=== PATIENT | female | born 1945 | race Caucasian/White ===

== ENCOUNTER 2018-03-16 09:52 | Outpatient (REF) | payer MEDICARE, OTHER, SELFPAY ==
[2018-03-16 20:04] LABS: Anion Gap 6.4 mmol/L (3-11); BUN 17 mg/dL (7-18); CO2 29.6 mmol/L (21.0-32.0); CREATININE 0.93 mg/dL (0.55-1.02); Calcium 8.9 mg/dL (8.5-10.1); Chloride 105 mmol/L (98-107); Cholesterol 188 mg/dL (50-200); Estimated GFR 59.43 (mL/min/1.73m2); Glucose 129 mg/dL (70-100); HDL Cholesterol 65 mg/dL (40-60); Potassium 4.3 mmol/L (3.5-5.1); Sodium 141 mmol/L (136-145); TSH 1.25 uIU/mL (0.358-3.74); Triglyceride 144 mg/dL (30-150)
[2018-03-16 21:02] LABS: LDL CHOLESTEROL 101 mg/dL (<100)
== END 2018-03-16 10:12 ==
LOC: NCHCN 09:52
PROVIDERS: PCP Physician Assistant Medical; Visit Provider Physician Assistant Medical
DX: E11.9 Type 2 diabetes mellitus without complications (principal)
CPT/HCPCS: 80048; 80061; 83721; 84443

== ENCOUNTER 2018-11-14 14:23 | Outpatient (REF) | payer MEDICARE, OTHER, SELFPAY ==
[2018-11-14 21:12] LABS: Anion Gap 9.4 mmol/L (3-11); BUN 18 mg/dL (7-18); CO2 26.6 mmol/L (21.0-32.0); CREATININE 1.06 mg/dL (0.55-1.02); Calcium 8.8 mg/dL (8.5-10.1); Chloride 105 mmol/L (98-107); Estimated GFR 50.96 (mL/min/1.73m2); Ferritin 42 ng/mL (8-388); Glucose 98 mg/dL (70-100); Magnesium 1.9 mg/dL (1.8-2.4); Potassium 4.1 mmol/L (3.5-5.1); Sodium 141 mmol/L (136-145)
[2018-11-14 22:28] LABS: Iron 94 ug/dL (50-175); Total Iron Binding Capacity 366 ug/dL (250-450); Transferrin Sat 26 % (15-50)
[2018-11-14 22:35] LABS: COMMENT (LAB VIEW ONLY) 241.36 mg/dL; Microalb ug/mg Crea 6.6 ug/mg Cr
== END 2018-11-14 14:43 ==
LOC: NCHCN 14:23
PROVIDERS: PCP Physician Assistant Medical; Visit Provider Nurse Practitioner Family
DX: E11.9 Type 2 diabetes mellitus without complications (principal)
CPT/HCPCS: 80048; 82043; 82570; 82728; 83540; 83550; 83735

== ENCOUNTER 2019-09-21 11:22 | Outpatient (REF) | payer MEDICARE, OTHER, SELFPAY ==
[2019-09-21 19:42] LABS: Abs Immature Grans 0.01 k/cumm (0.0-0.09); Absolute Basophil Count 0.06 k/cumm (0.0-0.2); Absolute Eosinophil Count 0.31 k/cumm (0.0-0.7); Absolute Lymphocyte Count 1.34 k/cumm (1.2-3.4); Absolute Monocyte Count 0.43 k/cumm (0.11-0.7); Absolute Neutrophil Count 4.05 k/cumm (1.2-6.7); HCT 40.3 % (36.0-46.0); HGB 13.5 g/dL (12.0-15.5); Immature Grans % 0.2 %; Lymphocytes % 21.6; Mean Corp. HGB Concentration 33.5 g/dL (32.0-36.0); Mean Corpuscular Hemoglobin 29.5 pg (27.0-33.0); Mean Platelet Volume 10.3 fL (8.0-11.0); Monocytes % 6.9; Neutrophils % 65.3; Platelet Count 261 x1000/uL (130-400); RBC 4.58 m/cumm (4.00-5.20); RBC Distribution Width 13.5 % (11.7-14.6)
[2019-09-21 20:30] LABS: COMMENT (LAB VIEW ONLY) 123.19 mg/dL; Microalb ug/mg Crea 8.1 ug/mg Cr
[2019-09-21 20:33] LABS: ALT 32 U/L (14-59); AST 22 U/L (15-37); Albumin 3.8 g/dL (3.4-5.0); Alkaline Phosphatase 93 U/L (46-116); BUN 22 mg/dL (7-18); Bilirubin, Total 0.7 mg/dL (0.2-1.0); CREATININE 1.14 mg/dL (0.55-1.02); Calcium 8.5 mg/dL (8.5-10.1); Calculated LDL 59 mg/dL (<100); Chloride 107 mmol/L (98-107); Cholesterol 147 mg/dL (<200); Estimated GFR 46.72 (mL/min/1.73m2); Glucose 124 mg/dL (74-106); HDL Cholesterol 72 mg/dL (40-60); Potassium 4.5 mmol/L (3.5-5.1); Sodium 141 mmol/L (136-145); Total Protein 6.8 g/dL (6.4-8.2); Triglyceride 82 mg/dL (<150)
[2019-09-21 20:46] LABS: Hemoglobin A1C 7.1 % (3.8-5.6)
== END 2019-09-21 11:42 ==
LOC: NCHCN 11:22
PROVIDERS: PCP Physician Assistant; Visit Provider Physician Assistant
DX: I10 Essential (primary) hypertension (principal); E11.9 Type 2 diabetes mellitus without complications; R05 Cough; E66.01 Morbid (severe) obesity due to excess calories; M25.511 Pain in right shoulder
CPT/HCPCS: 80053; 80061; 82043; 82570; 83036; 85025

== ENCOUNTER → 2019-12-04 10:50 | Outpatient (BNVA) | payer MEDICARE, OTHER, SELFPAY | PROVIDERS: PCP Physician Assistant; Referring Provider Physician Assistant; Visit Provider Orthopaedic Surgery | DX: R69 Illness, unspecified (principal) ==

== ENCOUNTER 2019-12-25 14:20 | Outpatient (CLI) | payer MEDICARE, OTHER, SELFPAY ==
--- NOTE | 2019-12-25 11:30 | DI.RAD_ITS ---
EXAM: XR KNEE LT 1V CLINICAL HISTORY: pain TECHNIQUE: COMPARISON: CR,DX XR KNEE COMPLETE MIN 4V LT from 10/11/2019 FINDINGS: AP view of the knee was obtained. Mild marginal osteophyte formation noted involving lateral and med ial tibiofemoral joint. Question slight narrowing lateral tibiofemoral cartilaginous joint space. N o other significant abnormality seen. IMPRESSION: RADIATION DOSE DELIVERED: Total DLP
== END 2019-12-25 14:40 ==
PROVIDERS: PCP Physician Assistant; Referring Provider Physician Assistant; Visit Provider Orthopaedic Surgery
DX: M25.762 Osteophyte, left knee (principal); M25.562 Pain in left knee
CPT/HCPCS: 20610; 99201; 99202; 73560; J1040

== ENCOUNTER → 2020-01-22 10:33 | Outpatient (BNVA) | payer MEDICARE, OTHER, SELFPAY | PROVIDERS: PCP Physician Assistant; Referring Provider Physician Assistant; Visit Provider Orthopaedic Surgery | DX: M25.562 Pain in left knee (principal); Z01.818 Encounter for other preprocedural examination; M23.304 Other meniscus derangements, unspecified medial meniscus, left knee; Z98.890 Other specified postprocedural states ==

== ENCOUNTER 2020-01-25 08:18 | Outpatient (CLI) | payer MEDICARE, OTHER, SELFPAY ==
[2020-01-26 14:57] LABS: COVID-19 RT-PCR Result NEGATIVE (Negative)
== END 2020-01-25 08:38 ==
PROVIDERS: PCP Physician Assistant; Visit Provider Orthopaedic Surgery
DX: Z11.59 Encounter for screening for other viral diseases (principal); Z01.818 Encounter for other preprocedural examination
CPT/HCPCS: U0003

== ENCOUNTER 2020-01-28 07:51 | Day surgery (SDC) | payer MEDICARE, OTHER, SELFPAY ==
[2020-01-28] VITALS (7 sets, daily range): BP systolic 103–145; BP diastolic 46–78; PULSE 54–69; RESP 14–17; TEMP 36.2–36.6; O2SAT 98–100
[2020-01-28] MEDS: Lactated Ringers 1,000 ML 80 ML IV (08:38)
[2020-01-28] MEDS: ceFAZolin 2 GM/50 ML BAG IVPB (09:51)
--- NOTE | 2020-01-28 10:40 | PDOC.DSDIS_ITS ---
Discharge Plan Disposition Patient Disposition: HOME Condition: Good Discharge Details Reason For Visit: ARTHROSCOPY L KNEE Attending Provider: Collin Clancy Primary Care Provider: Lisette Gimenez Home Meds and New Rx's Prescriptions: New hydrocodone-acetaminophen 5-325 mg tablet 1 tab PO Q6H PRN (Reason: pain) Qty: 10 RF: 0 ibuprofen 600 mg tablet 600 mg PO TID Qty: 30 RF: 0 Continued omeprazole 20 mg capsule,delayed release(DR/EC) 20 mg PO DAILY RF: 0 sertraline 100 mg tablet 100 mg PO DAILY RF: 0 Januvia 100 mg tablet 100 mg PO DAILY RF: 0 atorvastatin 10 mg tablet 10 mg PO DAILY RF: 0 losartan 50 mg tablet 50 mg PO DAILY RF: 0 magnesium 250 mg tablet 500 mg PO DAILY RF: 0 multivitamin Tablet 1 tab PO DAILY RF: 0 Discharge Instructions Additional Instructions: Elevate L leg on 1-2 pillows as much as possible for next 48 hours. Apply cryocuff to L knee 4 times/day for 1 hour each time. May use more, if desired. Crutches to walk. May put as much weight on L leg as your discomfort allows. Discontinue crutches when you can step fully on L leg with minimal pain. May remove dressings, shower, and get incisions wet after 48 hours. Leave incisions uncovered when they are dry and sealed. Outpatient physical therapy for rehab L knee post-arthroscopic partial lateral meniscectomy on or Tuesday. Follow up with in 2 weeks. Take ibuprofen as prescribed for 10 days to decrease swelling and inflammation. Take hydrocodone for breakthru pain, if needed. Referrals: Collin Clancy MD [ [facility] STAFF PHYSICIAN] - (f/u in 2 weeks.) Equipment/Supplies: Partial Weight Bearing Crutches Activity:: Activity as Tolerated Remove Dressings/Wound Care:: 48 hours Shower/Bathe:: 48 hours Diet:: As Tolerated Discharge Orders Discharge Orders: Discharge Order (Routine); Ordered 01/28/20 Ordered By: Collin Clancy
[2020-01-28] MEDS: fentaNYL 100 MCG/2 ML VIAL IVP (11:05)
[2020-01-28] MEDS: Normal Saline Flush 10 ML SYR IV (11:15)
[2020-01-28] MEDS: HYDROmorphone 2 MG/ML VIAL IVP (11:15)
--- NOTE | 2020-01-30 14:26 | ROE_ITS ---
Date of service: 01/28/20 Time of Service: 09:26 Operative Note Operative Note DATE OF PROCEDURE: 01/28/20 PRE-OP DIAGNOSIS: Torn left lateral meniscus POST-OP DIAGNOSIS: same PROCEDURE: Arthroscopic partial left lateral meniscectomy SURGEON: Collin Clancy ANESTHESIA: GETA COMPLICATIONS: None Patient was transported to: PACU Patient's condition: stable Indications: Is a 74-year-old white female who developed pain and swelling in her left knee at the beginning of December. Her pain was disabling for her. She did not respond to conservative treatment. MRI scan was obtained that showed a torn lateral meniscus. Arthroscopic partial lateral meniscectomy was recommended to alleviate her pain and hopefully restore her previous mobility. The risk on case of procedure explained patient detail preop Procedure Description: Patient taken the operating room on 01/28/2020 and placed supine operative table. General anesthetic was administered. The left thigh was placed in the arthroscopic leg contreras and the left knee was prepped and draped free in usual sterile fashion. Arthroscopic portals were established and the left knee was inflated with normal saline solution using the arthroscopy pump. Routine arthroscopic examination then proceeded. Intraoperative photographs were obtained to document pertinent findings. Findings medial compartment she was noted to have a normal medial meniscus. This meniscus was stable to probing on direct vision. There was minor scuffing of the medial femoral condyle articular cartilage from insertion of the arthroscope. The medial compartment articular cartilage for the most part was undamaged. In concert intact anterior and posterior cruciate ligaments. Lateral compartment showed a tear of the anterior half of the lateral meniscus. The articular cartilage in the lateral compartment was normal. The lateral meniscal tear was resected using the 90 degree high radiofrequency electrocautery wand. It was debrided back to a stable rim. The remaining rim of the lateral meniscus was probed under direct vision with a right angle probe and was fully stable. Popliteus tendon was normal. Medial lateral gutters were clear. Suprapatellar pouch was clear. Patellofemoral joint showed normal patella tracking and no significant to articular cartilage damage to the patella or the trochlea of the femur. At this point the knee was copiously irrigated with saline solution using arthroscopy pump until the outflow was clear. 15 cc of 0.5% Marcaine with epinephrine solution along with 4 mg of morphine were instilled into the left knee and all instruments were removed from the knee. The arthroscopy portals were infiltrated with 0.5% Marcaine and approximated interrupted 4 nylon sutures. Wounds were dressed with Xeroform gauze sterile gauze 4 x 4's ABD pads and wrapped with 6 inch Javed bandage for light pressure dressing. Patient's anesthesia was reversed all complications she was discharged to recovery in good condition. Patient was discharged home from day surgery unit and fully recovered from her general anesthesia. She is given instructions to use crutches to walk weightbearing as tolerated to the left leg. May discontinue the crutches soon as discomfort allows. She is try to elevate her left leg on 1-2 pillows once possible next 48 hours. She may remove her dressings shower get her incisions wet after 48 hours. She can leave the incisions uncovered when they are dry and sealed. She is apply a Cryo/Cuff to the left knee 4 times a day for an hour each time. She is to be an outpatient physical therapy for rehab of her left knee on or Tuesday. She is given prescription for ibuprofen 600 mg p.o. 3 times daily for 10 days for swelling and inflammation. She is given pres cription for breakthrough pain of hydrocodone with APAP 5/325 1 tablet p.o. every 6 hours as needed. She will follow-up with Dr. Clancy in 2 weeks.
== END 2020-01-28 13:10 | disposition home or self-care (01) ==
PROVIDERS: PCP Physician Assistant; Visit Provider Orthopaedic Surgery
PROC: (CPT 29870; principal; 2020-01-28 09:30)
DX: M23.262 Derangement of other lateral meniscus due to old tear or injury, left knee (principal); E11.9 Type 2 diabetes mellitus without complications; I10 Essential (primary) hypertension; E66.9 Obesity, unspecified; K21.9 Gastro-esophageal reflux disease without esophagitis
CPT/HCPCS: 29881; J0131; J0690; J1100; J1885; J2001; J2405; J3010

== ENCOUNTER → 2020-02-13 11:01 | Outpatient (BNVA) | payer MEDICARE, OTHER, SELFPAY | PROVIDERS: PCP Physician Assistant; Referring Provider Physician Assistant; Visit Provider Orthopaedic Surgery | DX: Z47.89 Encounter for other orthopedic aftercare (principal); M23.302 Other meniscus derangements, unspecified lateral meniscus, unspecified knee; E11.9 Type 2 diabetes mellitus without complications; I10 Essential (primary) hypertension ==

== ENCOUNTER → 2020-05-12 15:04 | Outpatient (BNVA) | payer MEDICARE, OTHER, SELFPAY | PROVIDERS: PCP Physician Assistant; Referring Provider Physician Assistant; Visit Provider Student in an Organized Health Care Education/Training Program | DX: M70.52 Other bursitis of knee, left knee (principal); M76.32 Iliotibial band syndrome, left leg; M72.2 Plantar fascial fibromatosis | CPT/HCPCS: 99213 ==

== ENCOUNTER 2020-09-25 09:16 | Outpatient (REF) | payer MEDICARE, OTHER, SELFPAY ==
[2020-09-25 18:43] LABS: Abs Immature Grans 0.02 10^3/uL (0.0-0.06); Absolute Basophil Count 0.09 10^3/uL (0.0-0.2); Absolute Eosinophil Count 0.41 10^3/uL (0.0-0.7); Absolute Lymphocyte Count 1.82 10^3/uL (1.2-3.4); Absolute Monocyte Count 0.54 10^3/uL (0.1-0.8); Absolute Neutrophil Count 5.19 10^3/uL (1.2-6.7); Basophils % 1.1; Eosinophils % 5.1; HCT 41.4 % (36.0-46.0); HGB 13.6 g/dL (11.2-15.7); Immature Grans % 0.2; Lymphocytes % 22.6; MCH 28.6 pg (27.0-33.0); MCHC 32.9 % (32.0-36.0); MCV 87.2 fL (80-95); MPV 10.3 fL (8.0-11.0); Monocytes % 6.7; Neutrophils % 64.3; Nucleated RBC 0 %; Platelet Count 262 10^3/uL (130-400); RBC 4.75 10^6/uL (3.93-5.22); RDW 13.3 % (11.7-14.6); RDW-SD 42.5 fL; WBC 8.07 10^3/uL (4.4-10.8)
[2020-09-25 19:15] LABS: ALT 25 U/L (14-59); AST 18 U/L (15-37); Albumin 3.6 g/dL (3.4-5.0); Alkaline Phosphatase 117 U/L (46-116); Anion Gap 7.9 mmol/L (3-11); BUN 27 mg/dL (7-18); Bilirubin, Total 0.4 mg/dL (0.2-1.0); CO2 27.1 mmol/L (21.0-32.0); CREATININE 1.1 mg/dL (0.55-1.02); Calcium 8.5 mg/dL (8.5-10.1); Calculated LDL 68 mg/dL (<100); Chloride 106 mmol/L (98-107); Cholesterol 161 mg/dL (<200); Estimated GFR 48.55 (mL/min/1.73m2); Glucose 177 mg/dL (74-106); HDL Cholesterol 72 mg/dL (40-60); Potassium 5.3 mmol/L (3.5-5.1); Sodium 141 mmol/L (136-145); Total Protein 6.7 g/dL (6.4-8.2); Triglyceride 105 mg/dL (<150)
[2020-09-25 19:25] LABS: Hemoglobin A1C 7.8 % (<5.7)
== END 2020-09-25 09:17 | disposition home or self-care (01) ==
LOC: NCHCN 09:16
PROVIDERS: PCP Physician Assistant; Visit Provider Physician Assistant
DX: I10 Essential (primary) hypertension (principal); E11.9 Type 2 diabetes mellitus without complications
CPT/HCPCS: 80053; 80061; 83036; 85025

== ENCOUNTER 2020-10-08 08:17 | Outpatient (REF) | payer MEDICARE, OTHER, SELFPAY ==
[2020-10-08 21:25] LABS: COMMENT (LAB VIEW ONLY) 132.65 mg/dL; Microalb ug/mg Crea 8.4 ug/mg Cr
== END 2020-10-09 08:18 | disposition home or self-care (01) ==
LOC: NCHCN 08:17
PROVIDERS: PCP Physician Assistant; Visit Provider Physician Assistant
DX: I10 Essential (primary) hypertension (principal); E11.9 Type 2 diabetes mellitus without complications
CPT/HCPCS: 82043; 82570

== ENCOUNTER 2020-11-06 18:53 | Outpatient (REF) | payer MEDICARE, OTHER, SELFPAY ==
[2020-11-06 20:08] LABS: TSH (W/Ref FT4) 1.03 uIU/mL (0.36-3.74); Vitamin B12 801 pg/mL (193-986)
[2020-11-08 10:20] LABS: HIV-1/2 Ag & Ab Screen Negative (Negative)
[2020-11-10 11:55] LABS: Syphilis Serology (RPR) Negative (Negative)
== END 2020-11-06 18:54 | disposition home or self-care (01) ==
LOC: NCHCN 18:53
PROVIDERS: PCP Physician Assistant; Visit Provider Physician Assistant
DX: R41.3 Other amnesia (principal); Z11.59 Encounter for screening for other viral diseases; Z11.4 Encounter for screening for human immunodeficiency virus [HIV]
CPT/HCPCS: 87389; 82607; 84443; 86592

== ENCOUNTER 2021-08-19 21:47 | Outpatient (REF) | payer MEDICARE, OTHER, SELFPAY ==
[2021-08-19 20:53] LABS: Anion Gap 9.5 mmol/L (3-11); BUN 20 mg/dL (7-18); CO2 26.5 mmol/L (21.0-32.0); Calcium 8.6 mg/dL (8.5-10.1); Chloride 105 mmol/L (98-107); Estimated GFR 54.05 (mL/min/1.73m2); Glucose 94 mg/dL (74-106); Potassium 4.5 mmol/L (3.5-5.1); Sodium 141 mmol/L (136-145)
== END 2021-08-19 21:48 | disposition home or self-care (01) ==
LOC: NCHCN 21:47
PROVIDERS: PCP Physician Assistant; Visit Provider Physician Assistant
DX: I10 Essential (primary) hypertension (principal)
CPT/HCPCS: 80048

== ENCOUNTER 2022-03-10 14:38 | Outpatient (CLI) | payer MEDICARE, OTHER, SELFPAY ==
--- NOTE | 2022-03-10 14:30 | DI.RAD_ITS ---
Exam(s) XR SHOULDER RT COMPLETE 2+V EXAM: XR SHOULDER RT COMPLETE 2+V CLINICAL HISTORY: RIGHT SHOULDER PAIN. TECHNIQUE: 2D digital imaging was performed. COMPARISON: Prior outside x-rays performed 04/13/2019 at [facility] FINDINGS: Two views: No evidence of fracture or dislocation. However, there is now a moderate size osteophyte on the infe rior articular surface of the humeral head, not evident on the prior study. The subacromial space is maintained. No calcifications therein. IMPRESSION: Increasing degenerative change in the glenohumeral joint as described above. DATA REPOSITORY: RADIATION DOSE DELIVERED:
--- NOTE | 2022-03-10 14:30 | DI.RAD_ITS ---
Exam(s) XR SHOULDER LT COMPLETE 2+V EXAM: XR SHOULDER LT COMPLETE 2+V CLINICAL HISTORY: LEFT SHOULDER PAIN. TECHNIQUE: 2D digital imaging was performed. COMPARISON: None FINDINGS: Two views. No evidence of fracture nor dislocation. However, there is a prominent osteophyte on the inferior ar ticular surface of the humeral head, similar to the opposite side. Subacromial space is not diminish ed and there is no calcification in the subacromial space. Minimal degenerative changes in the AC ely int. Bone density normal. No osseous lesions. IMPRESSION: Degenerative changes in the glenohumeral joint, as described above. DATA REPOSITORY: RADIATION DOSE DELIVERED:
== END 2022-03-10 14:39 | disposition home or self-care (01) ==
LOC: DIORS 14:39
PROVIDERS: PCP Physician Assistant; Referring Provider Physician Assistant; Visit Provider Student in an Organized Health Care Education/Training Program
DX: M19.012 Primary osteoarthritis, left shoulder; M75.101 Unspecified rotator cuff tear or rupture of right shoulder, not specified as traumatic; E11.9 Type 2 diabetes mellitus without complications; E66.01 Morbid (severe) obesity due to excess calories
CPT/HCPCS: 20610; 99214; 73030; J1030

== ENCOUNTER → 2022-03-25 02:13 | Outpatient (CLI) | payer MEDICARE, OTHER, SELFPAY ==
--- NOTE | 2022-03-25 13:40 | DI.CT_ITS ---
Exam(s) CT UPPER EXTREMITY RT WO EXAM: CT UPPER EXTREMITY RT WO CLINICAL HISTORY: surgical planning,rotator cuff arthropathy, m75.101,m12.811. TECHNIQUE: Imaging Protocol: Axial computed tomography images with coronal and sagittal reformatted images were created and reviewed. COMPARISON: CR XR SHOULDER RT COMPLETE 2+V from 03/10/2022 FINDINGS: Bones: The osseous structures and articular surfaces are intact. Bony alignment is satisfactory. N o cellulitic or osteomyelitic changes are identified. There are degenerative changes seen at the acr omioclavicular joint and the glenohumeral joint. The humeral head is high riding raising the questio n of a chronic rotator cuff tear. Spurring is seen along the undersurface of the acromion. No lytic or sclerotic lesions are identified. Soft Tissues: There is a large hiatal hernia present. There is moderately severe fatty atrophy of th e supraspinatus and infraspinatus muscles. IMPRESSION: 1. Degenerative changes of the shoulder. 2. Findings suggestive of a chronic rotator cuff tear. 3. Moderately severe fatty atrophy of the supraspinatus and infraspinatus muscles. RADIATION DOSE DELIVERED: 978.44mGy.cm Total DLP 978.44mGy.cm Total DLP DATA REPOSITORY: All CT scans at this facility are submitted to the National Radiology Data Registry (NRDR) Dose Index Registry (DIR) with the [employer] ([employer]). RADIATION OPTIMIZATION: All CT scans at this facility use at least one of these dose optimization te chniques: automated exposure control; mA and/or kV adjustment per patient size (includes targeted exa ms where dose is matched to clinical indication); or iterative reconstruction.
== END ==
PROVIDERS: PCP Physician Assistant; Visit Provider Student in an Organized Health Care Education/Training Program
DX: M12.811 Other specific arthropathies, not elsewhere classified, right shoulder (principal); M75.101 Unspecified rotator cuff tear or rupture of right shoulder, not specified as traumatic; M19.011 Primary osteoarthritis, right shoulder
CPT/HCPCS: 73200

== ENCOUNTER → 2022-04-14 10:30 | Outpatient (BNVA) | payer MEDICARE, OTHER, SELFPAY | PROVIDERS: PCP Physician Assistant; Referring Provider Physician Assistant; Visit Provider Student in an Organized Health Care Education/Training Program | DX: M75.101 Unspecified rotator cuff tear or rupture of right shoulder, not specified as traumatic (principal); M12.811 Other specific arthropathies, not elsewhere classified, right shoulder | CPT/HCPCS: 99214 ==

== ENCOUNTER 2022-05-06 05:51 | Day surgery (SDC) | payer MEDICARE, OTHER, SELFPAY ==
[2022-05-06] VITALS (13 sets, daily range): BP systolic 98–132; BP diastolic 33–81; PULSE 59–78; RESP 16–22; TEMP 36.4–36.7; O2SAT 94–100; BMI 44.5
--- NOTE | 2022-05-06 06:32 | W.ANESPRE ---
General Info Date of Service Date Performed: 05/06/22 Height: 5 ft 2 in Weight: 110.4 kg Body Mass Index (BMI): 44.5 Surgical Procedure: Operation Date: 05/06/22 07:40 Proposed Procedure Side Surgeon p Shoulder Reverse Total Arthroplasty, Biceps Tenodesis,any other indicated procedures Right Dung Culp MD Meds Allergies and Home Medications Allergies Allergy/AdvReac Type Severity Reaction Status Date / Time No Known Allergies Allergy Verified 05/05/22 14:20 Home Medication Medication Instructions Recorded atorvastatin 10 mg tablet 10 mg PO DAILY 12/04/19 losartan 50 mg tablet 50 mg PO DAILY 12/04/19 magnesium 250 mg tablet 500 mg PO DAILY 12/04/19 multivitamin 1 tab PO DAILY 12/04/19 sitagliptin phosphate 100 mg 100 mg PO DAILY 12/04/19 tablet (Januvia) ibuprofen 600 mg tablet 600 mg PO TID #30 tabs 01/28/20 dulaglutide 1.5 mg/0.5 mL 1.5 mg subcut QWEEK 03/09/22 [facility] sertraline 100 mg tablet 200 mg PO DAILY 03/09/22 Current Visit Medications: Current Medications Generic Name Dose Route Start Last Admin Trade Name Freq PRN Reason Stop Dose Admin Ringer's Solution 1,000 mls @ 30 mls/hr 05/06/22 06:00 IV 06/04/22 23:59 INFUSION MORTEZA Cefazolin Sodium 3,000 mg/ 100 mls @ 200 mls/hr 05/06/22 06:00 Sodium Chloride IVPB 05/06/22 18:00 PREOP MORTEZA Tranexamic Acid 1,000 mg/ 60 mls @ 360 mls/hr 05/06/22 06:00 Sodium Chloride IVPB 05/06/22 18:00 DIRECTED MORTEZA IV Miscellaneous Supplies 1 each 05/06/22 06:00 Iv Access IV 06/04/22 23:59 DIRECTED MORTEZA Sodium Chloride 0 ml 05/06/22 06:00 Normal Saline Flush 10 Ml Syr IV 06/04/22 23:59 PRN PRN Sodium Chloride 0 ml 05/06/22 06:00 Normal Saline 10 Ml Vial IJ 06/04/22 23:59 DIRECTED PRN Sterile Water 0 ml 05/06/22 06:00 Water,Injection,Sterile 10 Ml Vial IJ 06/04/22 23:59 DIRECTED PRN PFSH Active Problems Active Problems: Problem Status Onset Code Arthritis of left shoulder region M19.012 Rotator cuff tear arthropathy of right shoulder M75.101, M12.811 Plantar fasciitis of right foot M72.2 Iliotibial band tendonitis of left side M76.32 Pes anserinus bursitis of left knee M70.52 Knee pain, left M25.562 Internal derangement of knee involving lateral meniscus M23.302 Medical History Medical History Anxiety Depression Diabetes mellitus Dry cough GERD (gastroesophageal reflux disease) Hypertension Lumbar radiculopathy Morbid obesity Vertigo Surgical History Surgical History History of carpal tunnel release History of cholecystectomy Tobacco Smoking/Tobacco Use Status: Never Alcohol Alcohol Intake: never Substance Use Substance use type: does not use Vital Signs and Lab Results Vital Signs Most Recent Vital Signs in EMR: Most Recent Vital Signs Temp Pulse Resp BP Pulse Ox 36.4 C L 65 16 132/81 97 05/06/22 06:21 05/06/22 06:21 05/06/22 06:21 05/06/22 06:21 05/06/22 06:21 Lab Results Blood Type / Crossmatch: No Data to Display Complete Blood Count: No Data to Display Complete Metabolic Panel: No Data to Display Liver Function Panel: No Data to Display Coagulation Panel: No Data to Display Cardiac Panel: No Data to Display Arterial Blood Gas: No Data to Display Venous Blood Gas: No Data to Display Pancreas Panel: No Data to Display Thyroid Panel: No Data to Display Infectious Disease: No Data to Display Blood Cultures: No Data to Display Toxicology Panel: No Data to Display Anesthesia Assessment and Plan Anesthesia History Personal History: No History of Anesthesia Complications Family History: No Family History of Anesthesia Complications Exercise Tolerance Exercise Tolerance: Metabolic Equivalents<4 Pertinent Negatives Pertinent Negatives: No Symptoms of GERD, No Major Cardiovascular Symptoms or Complaints (Htn), No Major Pulmonary Symptoms or Complaints and No History of CVA/TIA Cardiac & Pulmonary Exam Cardiac Exam: Normal S1/S2 Heart Sounds Pulmonary Exam: Clear Bilateral Breath Sounds Implantable Cardiac Device Does patient have a Pacemaker or an ICD?: No Airway Exam Known Difficult Airway: No Mallampati Class: 3 Mouth Opening: Normal (> 3cm) Thyromental Distance: Greater than 3 cm Neck Range of Motion: Full ROM Neck Circumference: Thick Teeth Condition: Normal Dentition ASA Classification ASA Score: ASA 3 Emergency Case?: No NPO Status NPO Status: NPO Clears >2 hours, Solids >8 hours and Unable to Assess Anesthesia Plan Resuscitation Status: Full Code Anesthesia Technique: General Anesthesia Airway Planned: Endotracheal Tube Pain Management: Surgeon and patient request nerve block Monitors Used: Standard Monitors
[2022-05-06] MEDS: Lactated Ringers 1,000 ML 30 ML IV (06:50)
[2022-05-06 07:03] LABS: Source Nasal/Nares
[2022-05-06 07:35] LABS: COVID-19 PCR Negative (Negative)
[2022-05-06] MEDS: ceFAZolin 3,000 MG in Normal Saline 100 ML 200 MG IVPB (07:49)
--- NOTE | 2022-05-06 08:22 | W.ANESNERVE ---
Nerve Block Single Injection Procedure Date and Time Date Performed: 05/06/22 Procedure Start: 07:14 Location Where Procedure Performed Procedure Location: Day Surgery Unit Reason Performed: Postoperative Analgesia Requesting Provider: Dung Culp Timeout Performed Timeout Performed: Yes Monitoring Used ECG, Blood Pressure, SpO2 and See EMR for corresponding vital signs Sterility Sterility: Hand Hygiene, Surgical Cap, Surgical Mask, Sterile Gloves and Chlorhexidine Sedation Given During Procedure Sedation Given (Indicate Dose Given): Versed IV Dose:: 2 mg Patient Mental Status Patient Mental Status: Awake Nerve Block 1st Nerve Block: Laterality: Right Block Type: Interscalene Ultrasound Image Saved?: Yes Needle / Catheter Used: 100mm SonoPlex II Local Anesthetic Bolus (Indicate Dose Given): Lidocaine used for local infiltration of skin, Injected in 3-5ml increments after negative blood aspiration, Bupivacaine 0.5% Dose:: 10 ml and Exparel Dose:: 10 ml Additives (Indicate Dose Given): None Ultrasound: Sterile probe cover and gel used Nerve Stimulator: Not Used Paresthesia: None Procedure Tolerated: No Complications and Patient tolerated well Procedure Outcome: Successful Performed By: Scarlet Alexis Supervised By: Gisselle Shepherd
[2022-05-06] MEDS: Bupivacaine 0.5% Pres-Free W/EPI 10 ML VIAL (08:23)
--- NOTE | 2022-05-06 09:00 | W.PM.OP ---
Date of service: 05/06/22 Time of Service: 07:30 Operative Note Operative Note DATE OF PROCEDURE: 05/06/22 PRE-OP DIAGNOSIS: Right: 1. Rotator cuff arthropathy 2. Long head of the biceps tendinopathy POST-OP DIAGNOSIS: same PROCEDURE: Right: 1. Reverse total shoulder arthroplasty, CPT # 94093 2. Open biceps tenodesis, CPT # 57591 The technical administrative assistant was medically required as this procedure involves retraction, protection of neurovascular structures, and manipulation of multiple instruments and implants at the same time, which cannot be done without a skilled technical administrative assistant. SURGEON: Dung Culp [employer] ATTENDANT: Kate Lucero ANESTHESIA TYPE: Local By Surgeon, General LMA/ETT and Primary Nerve Block Refer to Anesthesia Record ESTIMATED BLOOD LOSS: 75 COMPLICATIONS: None Patient was transported to: PACU Patient's condition: stable Implants: [employer] modular glenoid system baseplate 24 mm full 10 degree augment [employer] modular glenoid system central post 20 mm [employer] modular glenoid system peripheral locking screws 36 mm inferior, 28 mm superior, none posterior, 20 mm anterior [employer] modular glenoid system glenosphere 36 +4 mm lateralized [employer] humeral stem 135 degrees size 7 [employer] suture cup size 36 neutral offset [employer] humeral insert size 36 +3 mm constrained Indications: Please see complete medical record for details. Findings: Significant long head biceps tenosynovitis, partial tearing subscapularis, and completely deficient supraspinatus and infraspinatus, and high-grade posterior superior glenoid wear with cartilage loss Procedure Description: In the operating room, general anesthesia was induced. The patient was positioned beachchair on the operating room table. All bony prominences were well-padded. Preoperative antibiotics were administered. The shoulder was prepped and draped in the usual sterile fashion for shoulder arthroplasty. The correct patient, procedure, and side of the procedure were all verified prior to incision. The deltopectoral approach was taken to the anterior shoulder. Care was taken to bluntly dissect the interval between the deltoid and pectoralis major muscles and to identify the cephalic vein within its fat stripe. The the vein was mobilized laterally. Subdeltoid space and conjoined tendon were freed of adhesions. The long head of the biceps tendon was identified just lateral to the lesser tuberosity. The uppermost margin of the pectoralis major tendon was released from the proximal humerus. The long head of the biceps tendon was secured with sutures at the level of the lesser tuberosity for later repair. The biceps tendon stump was amputated and followed proximally to identify the rotator interval. A subscapularis peel was performed taking care to release the entire tendon in a full-thickness fashion from superior to inferior and lateral to medial while bringing the arm gradually into external rotation. Care was taken to avoid the axillary nerve by only working on the bone inferiorly and medially. The subscapularis was tagged using SutureTape in a Roni-Clint fashion and traction used confirm appropriate mobilization of the subscapularis tendon after gentle blunt dissection was used to free up the space anterior and posterior to it. The humeral head was devoid of supraspinatus and infraspinatus. Appropriate coagulation was achieved especially interiorly. The anatomic neck was cut using an oscillating saw with the humeral head bone brought back table in case there was a need for future bone grafting. The proximal humeral protection plate was used to provisionally confirm suture cup and glenosphere size. Attention was then turned to the glenoid and retractors were placed and a circumferential release performed using the long head of the biceps remnant to remove soft tissue about the glenoid rim. Care was taken inferiorly to work on bone only between 5 and 7:00 o'clock and bluntly elevate tissues inferiorly. The VIP guide was placed on the glenoid and used to confirm placement and trajectory of the central guidepin. The glenoid was diminutive and only about the size of the baseplate. The guidepin was inserted using the eccentric guide and advanced just through the far cortex ensuring adequate central fixation length. Depth gauge was used to confirm length. The eccentric glenoid reamer was then used over the guidewire with appropriate glenoid preparation except for the most posterior superior largestportion of the defect. The 20 mm central drill was used. The baseplate was prepared with a small amount of cancellous bone graft to accommodate the posterior superior defect and then impacted and fully compressed onto the prepared glenoid surface. The most posterior screw hole had little glenoid available due to the diminutive size. The locking guide was then used to drill and place appropriately lengthed inferior, superior, and anterior screws. The posterior screw was omitted. The [id number] reamer was used to confirm adequate peripheral reaming. The glenosphere was applied with the tissue inserter and then impacted to engage the Vidal taper. It was then locked with appropriate countersinking of the setscrew. The glenosphere was inspected and found to have good fit, appropriate positioning, and no soft tissue or bony impingement. Attention was then turned back to the proximal humerus, which was delivered from the wound and maintained in external rotation. Reamers were started appropriately posterior to the bicipital groove taking care to maintain in line approach with the humeral canal. Sequential reaming was done from size 5 up to size 7. Next, the broaches were sequentially used to open the proximal humerus starting with a size 5 and going up to size 6 and sunk to the appropriate depth while maintaining approximately 30 degrees retroversion. There was good metaphyseal fit and rotational control of the proximal humerus with this size. The neutral offset guide was used to ream for the suture cup. The humeral trial cup was connected. Trialing was commenced with +3 mm liner. The shoulder was reduced and taken through range of motion. It demonstrated appropraite stability and tension on the deltoid and conjoined tension. The trial components were removed from the proximal humerus. The wound was copiously irrigated with normal saline. Drill holes were omitted for subscapularis repair given soft bone quality concern for propagation of fracture. The the proximal humeral stem and suture cup were assembled and brought over the proximal humerus. A small amount of vancomycin powder was distributed in the proximal humerus. The humeral component and suture cup were impacted into place. The trial liner added, and the shoulder was reduced and range of motion, stability, and tension confirmed to be appropriate. A constrained liner was chosen given the soft tissue deficiency and significant obesity to avoid instability, and this liner attached, shoulder reduced, and range of motion, stability, and tension confirmed. The shoulder was copiously irrigated with Betadine and normal saline. Vancomycin powder was distributed deeply about the shoulder and through subcutaneous tissues. The arm was placed in about 30 degrees of external rotation. The subscapularis and capsule was reduced and repaired over the suture cup adjacent to the lesser tuberosity through the suture Holes in a single row. The biceps tendon was repaired over the lesser tuberosity adjacent to the subscapularis as a tenodesis and augment the anterior tissue. The deltopectoral interval was well approximated with a few 0 Vicryl buried stitches taking care to bury the vein. Subcutaneous tissue was irrigated then space and subcutaneous tissue closed using 2-0 Monocryl in a buried interrupted fashion. Skin was closed using 3-0 Monocryl in a buried subcuticular fashion. Skin glue was applied to the incision. A silver impregnated bandage was placed over the incision. The extremity was placed into a shoulder immobilizer. The patient awoke from anesthesia without complication and was taken to the recovery room in stable condition.
--- NOTE | 2022-05-06 10:44 | PDOC.DSDIS_ITS ---
Date of service: 05/06/22 Time of Service: 14:00 Discharge Plan Disposition Patient Disposition: Home Discharge Details Attending Provider: Dung Culp Primary Care Provider: Lisette Gimenez Home Meds and New Rx's Prescriptions: New naproxen 250 mg tablet 250 - 500 mg PO BID PRNQty: 40 0RF Rx Instructions: take with a meal aspirin 81 mg tablet,delayed release (DR/EC) 81 mg PO DAILY 14 Days Qty: 14 0RF oxycodone 5 mg tablet 5 - 10 mg PO Q4H MDD 30 mg PRN (Reason: moderate to severe pain) Qty: 18 0RF Continued Januvia 100 mg tablet 100 mg PO DAILY atorvastatin 10 mg tablet 10 mg PO DAILY losartan 50 mg tablet 50 mg PO DAILY magnesium 250 mg tablet 500 mg PO DAILY multivitamin Tablet 1 tab PO DAILY sertraline 100 mg tablet 200 mg PO DAILY Trulicity 1.5 mg/0.5 mL pen injector 1.5 mg subcut QWEEK Discontinued ibuprofen 600 mg tablet 600 mg PO TID Qty: 30 0RF Discharge Instructions Additional Instructions: Surgery: Right reverse total shoulder arthroplasty (constrained liner) with biceps tenodesis Activity: Do not lift anything heavier than a coffee. You should keep your arm at your side in a neutral position at all times except for gentle range of motion exercises, physical therapy, and essential activities. You should use the sling whenever you are out of the house. You may have to adjust the abduction pillow or remove it for comfort. At home it is best to remove the sling and rest the arm on a pillow at your side or support the operative side with your other hand. A physical therapy prescription will be sent electronically to start in about 3 weeks. MODIFIED reverse TSA Protocol: AROM OK Postoperative Weeks 0-6 ?Immobilization: Sling may be removed for therapeutic exercises, resting in bed or chair, and bathing ?Motion exercises: Pendulum exercises, elbow range- of-motion exercises, wrist bttaw-fi-ggxkrb exercises, and gunner's mate strengthening ?Restrictions: No active internal rotation or backwards extension Postoperative Weeks 6-12 ?Immobilization: Sling discontinued ?Motion exercises: Shoulder passive range of motion, advancing to active- assisted range of motion, and finally active range of motion with a goal of forward flexion to 90? and external rotation of 20? ?Strengthening exercises: Light, resisted forward flexion, external rotation, and abduction limited to isometric exercises and therapy bands with concentric motions only. Continue gunner's mate strengthening ?Restrictions: No resisted internal rotation or backwards extension. No scapular retraction exercises with therapy bands Postoperative Months 3-12 ?Motion exercises: Increase ouhqo-sk-whdtdk exercises to achieve full motion, with passive stretching at end ranges ?Strengthening: Begin resisted, internal rotation and backwards extension initially with isometric exercises advancing to light therapy bands and then weights. Advance other shoulder strengthening exercises to include the rotator cuff, deltoid, and scapular stabilizers. Advance to functional strengthening, including plyometric exercises and core strengthening. Prescriptions: Aspirin 81 mg take 1 daily to prevent a blood clot for 2 weeks Naproxen 250 mg take 1-2 every 12 hours with a meal as needed for moderate pain Oxycodone 5 mg take 1-2 every 4-6 hours as needed for severe pain You may use vysm-wzc-vffxgpw Tylenol (acetaminophen) as needed for mild pain. These pain medications may be taken all at once or in different combinations as needed. Also, recommend Colace (docusate) as a stool softener as surgery and pain medicine cause constipation. You may try zbbl-uss-xecmxyi diphenhydramine (Benadryl) 25-50 mg nightly as a sleep aid Dressings: Leave dressing in place until follow-up. Keep clean and dry at all times. No showers please. Follow-up: 10-[address] Culp You may take off the leg compression stockings this evening at home. You may also leave them on a few days longer if you have a history of leg swelling or edema. Please call the office during business hours with any questions or concerns. Let us know right away if you develop any redness, drainage, fevers, chest pain, or trouble breathing. Do not drink alcohol or drive for at least 24 hours after anesthesia. Discharge Orders Discharge Orders: Discharge Order (Routine); Ordered 05/06/22 Ordered By: Dung Culp DS: Diagnosis Discharge Diagnosis (1) Rotator cuff tear arthropathy of right shoulder: Status: Acute
[2022-05-06] MEDS: ceFAZolin 1 GM/50 ML BAG IVPB (11:20)
--- NOTE | 2022-05-06 11:35 | W.ANESPOSTOP ---
Postoperative Evaluation Date, Time and Location Date Performed: 05/06/22 Time Performed: 11:35 Patient Location: PACU Vital Signs Most Recent Imported Vital Signs: Most Recent Vital Signs Temp Pulse Resp BP Pulse Ox 36.7 C 59 L 22 124/50 L 99 05/06/22 11:00 05/06/22 11:29 05/06/22 11:29 05/06/22 11:29 05/06/22 11:29 Pain Score Most Recent Pain Score: Most Recent Pain Score Pain Level 5 05/06/22 11:29 Assessment Mental Status: Awake (Alert & Oriented to Patient Baseline) Airway and Respiratory Function: Patent airway with normal (patient baseline) respiratory exam Cardiovascular Function: Hemodynamically Stable Hydration Status: Adequately Hydrated Nausea & Vomiting: No Nausea or Vomiting Pain: Pain is tolerable per patient Peripheral Nerve Block: Regional nerve block not resolved at time of post operative discharge
--- NOTE | 2022-05-06 11:38 | DI.RAD_ITS ---
Exam(s) XR SHOULDER RT COMPLETE 2+V EXAM: XR SHOULDER RT COMPLETE 2+V CLINICAL HISTORY: True AP Scapular Y postop. TECHNIQUE: 2D digital imaging was performed. COMPARISON: CR XR SHOULDER LT COMPLETE 2+V from 03/10/2022 FINDINGS: Two views postop Satisfactory position alignment of the components of the newly placed reverse prosthesis. No obvious fractures nor loosening evident. IMPRESSION: DATA REPOSITORY: RADIATION DOSE DELIVERED:
--- NOTE | 2022-05-06 12:52 | IN_ITS ---
Date of service: 05/06/22 Time of Service: 12:52 PT Notes Physical Therapy Day Surgery Initial Evaluation Date: Referring Doctor: dung Culp MD PT Orders: PT CONSULT: S/P ortho surgery. Review modified rTSA protocol. Precautions: Modified reverse total shoulder arthroplasty protocol in place per Dr. Culp. Patient Profile/Admitting Diagnosis: Britta is a 76-year-old female with rotator cuff arthropathy, left biceps tendon status post left reverse total shoulder arthroplasty date 626 postoperative day 0. PMHX: All Active Problems?(Updated 03/10/22 @ 14:46 by Dung Culp MD) Arthritis of left shoulder region (Acute) Rotator cuff tear arthropathy of right shoulder (Acute) Plantar fasciitis of right foot (Acute) Iliotibial band tendonitis of left side (Acute) Pes anserinus bursitis of left knee (Acute) Knee pain, left (Acute) Internal derangement of knee involving lateral meniscus (Acute) Medical History?(Updated 03/10/22 @ 14:46 by Dung Culp MD) Anxiety Depression Diabetes mellitus Dry cough GERD (gastroesophageal reflux disease) Hypertension Lumbar radiculopathy Morbid obesity Vertigo Surgical History? History of carpal tunnel release History of cholecystectomy Social History/Home Situation: Independent with all aspects of ADLs prior to admission. Equipment Owned/DME: None Subjective: Reports numbness, heaviness, and decreased ability to move left arm. Reports being woozy and needed to be assisted to and from bathroom during the session. Objective: General Observation: Supine in bed. Sling in R UE. Mental Status: Alert and oriented x 4 Pain: Some discomfort at end of range of elbow flexion and hand to mouth movement with L UE ROM: Able to touch R shoulder and mouth with L hand with minimal discomfort but unable to reach L shoulder. Up to 10 degrees of active wrist extension, up to 40 degrees with wrist flexion. Forearm supination to neutral only. Strength: Left Upper Extremity: Shoulder not tested. Elbow 3-/5. Wrist 3-/5. Grasp weak but functional. Sensation: Some numbness in L shoudler and L proximal arm Bed Mobility/Transfers: Supine to sit independent Sit to stand independent Stand to sit contact guard assist Bed to chair contact guard assist Gait: 25 feet + 25 feet with no AD, sling on L UE. Balance: Static Sitting: Normal Dynamic Sitting: Normal Static Standing: Fair Dynamic Standing: Fair Special Tests: Mobility Limitations Standardized Measure [facility] AM-PAC 6 clicks Basic Mobility Inpatient Short Form: Raw Score: 24 CMS Score: 0% deficit Informed Consent/Education: Patient was instructed in purpose of PT consult. Packet containing modified reverse total shoulder exercise protocol has been given to patient. Education and training on initial set of exercises that can be done at home have been completed with patient. PATIENT EDUCATION: 1. Reviewed avoidance of combined L shoulder extension and internal rotation as in pushing onto arm rest with L hand. 2. May prop L UE on pillows to ensure neutral L shoulder position while seated on chair. 3. May use pillow(s) to ensure neutral posiiton of L UE while in bed 4. Use sling when out of the house or doing long distance ambulation THERA EX: Short arc shoulder flexion extension (to neutral) while R hand clasped onto L hand Short arc horizontal abduction adduction while R ahnd is clasped onto L hand L elbow to mouth x 5 L elbow to R shoulder x 5 L wrist flexion/extension x 5 Squeeze ballswith 5 sh x 5 Seated pendulum exercises to L shoulder x 10. Standing may not be safe due to history of vertigo. Assessment: Patient presents with clinical signs and symptoms consistent with current/admitting diagnoses that have resulted to mobility limitations, gait instability, generalized weakness, and impairment of motor control as demonstrated by the following impairment level findings: 1. Decreased strength to left shoulder major muscle groups 2. Limitation of joint range of motion in left shoudker due to postoperative protocol Impairments are contributing to the following functional limitations: 1. Increased risk for adhesions in L shoulder 2. Limited use of L shoulder Patient is assessed as a 32072 low complexity based on the following: History: 76-year-old female with impairment level findings, functional limitations, and past medical history as indicated above Examination: Demonstrable impairment in strength, balance, and mobility level with underlying impairments and functional limitations as documented above Presentation: Stable Decision Makin low complexity Goals: N/A. PT evaluation and 1-2 treatment sessions only for functional mobility training using recommended AD and for HEP instruction. Plan of Care/Treatment Plan: N/A. PT evaluation and 1-2 treatment session only for functional mobility training using recommended AD and for HEP instruction. DISCHARGE RECOMMENDATIONS: Home when medically cleared by orthopedic surgeon. Recommend outpatient PT services in order to optimize functional use of left UE within orthopedist- presscribed timelines. TREATMENT CODE/TIME: 85547 x 26 minutes beginning at 12:52 PM. Thank you for the opportunity to participate in the care of this patient. Yanet Saeed PT, DPT, CLT [facility] [place], [place]
--- NOTE | 2022-05-06 14:07 | NUR.NOTE ---
05/06/22 Patient requested Home Health PT. The office was called and spoke with Miya who will look into Home Health PT for patient. Nursing Note:
== END 2022-05-06 14:15 | disposition home or self-care (01) ==
PROVIDERS: PCP Physician Assistant; Visit Provider Student in an Organized Health Care Education/Training Program
PROC: (CPT 23472; principal; 2022-05-06 07:30)
DX: M19.012 Primary osteoarthritis, left shoulder (principal); M75.101 Unspecified rotator cuff tear or rupture of right shoulder, not specified as traumatic; M75.21 Bicipital tendinitis, right shoulder; Z20.822 Contact with and (suspected) exposure to COVID-19; E11.9 Type 2 diabetes mellitus without complications; E66.01 Morbid (severe) obesity due to excess calories; Z68.41 Body mass index [BMI] 40.0-44.9, adult
CPT/HCPCS: 23472; 76942; 87635; 97161; 73030; C1781; J0690; J1100; J1885; J2250; J2370; J2405; J2704

== ENCOUNTER 2022-05-18 14:11 | Outpatient (CLI) | payer MEDICARE, OTHER, SELFPAY ==
--- NOTE | 2022-05-18 13:15 | DI.RAD_ITS ---
Exam(s) XR SHOULDER RT COMPLETE 2+V EXAM: XR SHOULDER RT COMPLETE 2+V CLINICAL HISTORY: right shoulder f/u. TECHNIQUE: 2D digital imaging was performed. COMPARISON: CR XR SHOULDER RT COMPLETE 2+V from 05/06/2022 FINDINGS: Two views: There is continued stable appearance of the components of the reverse prosthesis. No fractures nor l oosening evident. IMPRESSION: Continued stable satisfactory appearance. DATA REPOSITORY: RADIATION DOSE DELIVERED:
== END 2022-05-18 14:12 | disposition home or self-care (01) ==
LOC: DIORS 14:12
PROVIDERS: PCP Physician Assistant; Referring Provider Physician Assistant; Visit Provider Student in an Organized Health Care Education/Training Program
DX: M12.811 Other specific arthropathies, not elsewhere classified, right shoulder (principal); M75.101 Unspecified rotator cuff tear or rupture of right shoulder, not specified as traumatic
CPT/HCPCS: 73030

== ENCOUNTER 2022-07-06 13:17 | Outpatient (CLI) | payer MEDICARE, OTHER, SELFPAY ==
--- NOTE | 2022-07-06 13:00 | DI.RAD_ITS ---
Exam(s) XR SHOULDER RT COMPLETE 2+V EXAM: XR SHOULDER RT COMPLETE 2+V CLINICAL HISTORY: f/u surgery. TECHNIQUE: 2D digital imaging was performed. Two images were obtained. AP and Y views were obtained . COMPARISON: CR XR SHOULDER RT COMPLETE 2+V from 05/18/2022 FINDINGS: BONES: There are stable post operative changes present. No fracture or dislocation. JOINTS: The orthopedic hardware is in good position. No evidence of hardware loosening. Mild degene rative changes are seen at the acromioclavicular joint characterized by bony hypertrophy. SOFT TISSUE: Normal. IMPRESSION: Stable postoperative changes. DATA REPOSITORY: RADIATION DOSE DELIVERED:
== END 2022-07-06 13:18 | disposition home or self-care (01) ==
LOC: DIORS 13:17
PROVIDERS: PCP Physician Assistant; Referring Provider Physician Assistant; Visit Provider Student in an Organized Health Care Education/Training Program
DX: M75.101 Unspecified rotator cuff tear or rupture of right shoulder, not specified as traumatic (principal); M12.811 Other specific arthropathies, not elsewhere classified, right shoulder
CPT/HCPCS: 73030

== ENCOUNTER 2022-08-24 13:25 | Outpatient (CLI) | payer MEDICARE, OTHER, SELFPAY ==
--- NOTE | 2022-08-24 13:00 | DI.RAD_ITS ---
Exam(s) XR SHOULDER RT COMPLETE 2+V EXAM: XR SHOULDER RT COMPLETE 2+V CLINICAL HISTORY: f/u TSA. TECHNIQUE: 2D digital imaging was performed. Two images were obtained. Y in AP views were obtained. COMPARISON: CR XR SHOULDER RT COMPLETE 2+V from 07/06/2022 FINDINGS: BONES: There are stable post operative changes present. No fracture or dislocation. JOINTS: The orthopedic hardware is in good position. No evidence of hardware loosening. There are d egenerative changes seen at the acromioclavicular joint. SOFT TISSUE: Normal. IMPRESSION: Stable postoperative changes. DATA REPOSITORY: RADIATION DOSE DELIVERED:
== END 2022-08-24 13:26 | disposition home or self-care (01) ==
LOC: DIORS 13:25
PROVIDERS: PCP Physician Assistant; Referring Provider Physician Assistant; Visit Provider Student in an Organized Health Care Education/Training Program
DX: M19.012 Primary osteoarthritis, left shoulder (principal); M75.101 Unspecified rotator cuff tear or rupture of right shoulder, not specified as traumatic
CPT/HCPCS: 99213; 73030

== ENCOUNTER 2022-08-31 16:41 | Outpatient (REF) | payer MEDICARE, OTHER, SELFPAY ==
[2022-08-31 19:21] LABS: ALT 22 U/L (14-59); AST 21 U/L (15-37); Albumin 3.8 g/dL (3.4-5.0); Alkaline Phosphatase 107 U/L (46-116); Anion Gap 6.9 mmol/L (3-11); BUN 23 mg/dL (7-18); Bilirubin, Total 0.5 mg/dL (0.2-1.0); CO2 27.1 mmol/L (21.0-32.0); CREATININE 0.9 mg/dL (0.55-1.02); Calcium 8.8 mg/dL (8.5-10.1); Chloride 107 mmol/L (98-107); Estimated GFR 66.26 (mL/min/1.73m2); Glucose 80 mg/dL (74-106); Potassium 4.5 mmol/L (3.5-5.1); Sodium 141 mmol/L (136-145); Total Protein 7.4 g/dL (6.4-8.2)
== END 2022-08-31 16:42 | disposition home or self-care (01) ==
LOC: NCHCN 16:41
PROVIDERS: PCP Physician Assistant; Visit Provider Physician Assistant
DX: I10 Essential (primary) hypertension (principal)
CPT/HCPCS: 80053

== ENCOUNTER → 2022-12-06 01:48 | Outpatient (CLI) | payer MEDICARE, OTHER, SELFPAY ==
--- NOTE | 2022-12-06 06:45 | DI.CT_ITS ---
Exam(s) CT UPPER EXTREMITY LT WO EXAM: CT UPPER EXTREMITY LT WO CLINICAL HISTORY: SURGICAL PLANNING FOR TSA, ARTHRITIS LT SHOULDER REGION, M19.012 TECHNIQUE: Imaging Protocol: Axial computed tomography images with coronal and sagittal reformatted images were created and reviewed. CONTRAST MATERIAL: Noncontrast COMPARISON: CR XR SHOULDER LT COMPLETE 2+V from 03/10/[address] UPPER EXTREMITY RT WO from 03/25/2022 CR XR SHOULDER RT COMPLETE 2+V from 05/06/2022 CR XR SHOULDER RT COMPLETE 2+V from 05/18/2022 CR XR SHOULDER RT COMPLETE 2+V from 07/06/2022 CR XR SHOULDER RT COMPLETE 2+V from 08/24/2022 FINDINGS: Bones: Moderate to severe degenerative changes are noted at the glenohumeral joint. Mild degenerativ e changes AC joint. Soft Tissues: Normal. Visualized portions of the left lung clear. IMPRESSION: Degenerative changes of the glenohumeral joint.. RADIATION DOSE DELIVERED: 955.48mGy.cm Total DLP DATA REPOSITORY: All CT scans at this facility are submitted to the National Radiology Data Registry (NRDR) Dose Index Registry (DIR) with the [employer] ([employer]). RADIATION OPTIMIZATION: All CT scans at this facility use at least one of these dose optimization te chniques: automated exposure control; mA and/or kV adjustment per patient size (includes targeted exa ms where dose is matched to clinical indication); or iterative reconstruction.
== END ==
PROVIDERS: PCP Physician Assistant; Visit Provider Student in an Organized Health Care Education/Training Program
DX: M19.012 Primary osteoarthritis, left shoulder (principal)
CPT/HCPCS: 73200

== ENCOUNTER 2022-12-21 13:59 | Outpatient (CLI) | payer MEDICARE, OTHER, SELFPAY ==
--- NOTE | 2022-12-21 13:00 | DI.RAD_ITS ---
Exam(s) XR SHOULDER RT COMPLETE 2+V EXAM: XR SHOULDER RT COMPLETE 2+V INDICATION: right shoulder f/u. COMPARISON: CR XR SHOULDER RT COMPLETE 2+V from 08/24/[address] UPPER EXTREMITY LT WO from 12/06/2022 TECHNIQUE: 2D digital imaging was performed. Two views. FINDINGS: There has been no change in the alignment of the reverse shoulder prosthesis. There are no abnormal surrounding bony lucencies. DATA REPOSITORY: RADIATION DOSE DELIVERED:
--- NOTE | 2022-12-21 13:00 | DI.RAD_ITS ---
Exam(s) XR SHOULDER LT COMPLETE 2+V EXAM: XR SHOULDER LT COMPLETE 2+V CLINICAL HISTORY: left shoulder f/u. TECHNIQUE: 2D digital imaging was performed. Two views. COMPARISON: CR XR SHOULDER LT COMPLETE 2+V from 03/10/2022 FINDINGS: BONES: No acute fracture is present. No bony destructive lesion is seen. JOINTS: No dislocation present. Mild spurring at the AC joint. Moderate to severe narrowing of the glenohumeral joint, progressing since the prior exam. Spurring at the humeral head and inferior renetta oid. Humeral head normally position. SOFT TISSUE: Normal. IMPRESSION: Moderate to severe degenerative changes of the glenohumeral joint. DATA REPOSITORY: RADIATION DOSE DELIVERED:
== END 2022-12-21 14:00 | disposition home or self-care (01) ==
LOC: DIORS 13:59
PROVIDERS: PCP Physician Assistant; Referring Provider Physician Assistant; Visit Provider Student in an Organized Health Care Education/Training Program
DX: M75.101 Unspecified rotator cuff tear or rupture of right shoulder, not specified as traumatic (principal); M12.811 Other specific arthropathies, not elsewhere classified, right shoulder
CPT/HCPCS: 99214; 73030

== ENCOUNTER 2022-12-29 08:55 | Outpatient (CLI) | payer MEDICARE, OTHER, SELFPAY ==
--- NOTE | 2022-12-29 09:13 | DI.RAD_ITS ---
Exam(s) XR KNEE RT 3V AP,LAT,SABRINA EXAM: XR KNEE RT 3V AP,LAT,SABRINA CLINICAL HISTORY: right knee pain. TECHNIQUE: 2D digital imaging was performed of the right knee. Three views obtained. AP, lateral an d PA tunnel views were obtained. COMPARISON: CR KNEE 4V RT from 05/05/2018 FINDINGS: BONES: No acute fracture is present. No bony destructive lesion is seen. JOINTS: Tricompartment degenerative changes are seen in the right knee characterized by joint space n arrowing and osteophytes. The findings are most marked in the lateral femoral tibial joint. There i s again seen a depression in the lateral tibial plateau. There is a small joint effusion. SOFT TISSUE: Normal. IMPRESSION: Moderately severe degenerative changes of the right knee. DATA REPOSITORY: RADIATION DOSE DELIVERED:
--- NOTE | 2022-12-29 09:13 | DI.RAD_ITS ---
Exam(s) XR KNEE LT 3V AP,LAT,SABRINA EXAM: XR KNEE LT 3V AP,LAT,SABRINA CLINICAL HISTORY: left knee pain. TECHNIQUE: 2D digital imaging was performed of the left knee. Three images were obtained. AP, late ral and PA tunnel views were obtained. COMPARISON: CR,DX XR KNEE COMPLETE MIN 4V LT from 10/11/2019 CR XR KNEE LT 1V from 12/25/2019 FINDINGS: BONES: No acute fracture is present. No bony destructive lesion is seen. JOINTS: Tricompartment degenerative changes are seen characterized by joint space narrowing and osteo phytes. The findings are most marked in the lateral femoral tibial and patellofemoral joints. There is a small joint effusion. No loose body. SOFT TISSUE: Normal. IMPRESSION: Osteoarthritis of the left knee. DATA REPOSITORY: RADIATION DOSE DELIVERED:
== END 2022-12-29 08:56 | disposition home or self-care (01) ==
LOC: DIORS 08:55
PROVIDERS: PCP Physician Assistant; Referring Provider Physician Assistant
DX: M17.11 Unilateral primary osteoarthritis, right knee; M17.12 Unilateral primary osteoarthritis, left knee
CPT/HCPCS: 20610; 73562; J1040

== ENCOUNTER 2023-02-03 05:48 | Day surgery (SDC) | payer MEDICARE, OTHER, SELFPAY ==
[2023-02-03] VITALS (11 sets, daily range): BP systolic 103–160; BP diastolic 57–92; PULSE 62–70; RESP 12–19; TEMP 36.3–36.8; O2SAT 93–98; BMI 44.1
[2023-02-03] MEDS: Lactated Ringers 1,000 ML 30 ML IV (06:51)
--- NOTE | 2023-02-03 06:59 | W.PM.DSUDISC ---
Date of service: 02/03/23 Time of Service: 15:00 Discharge Plan Disposition Patient Disposition: Home Discharge Details Attending Provider: Dung Culp Primary Care Provider: Lisette Gimenez Home Meds and New Rx's Prescriptions: New naproxen 250 mg tablet 250 - 500 mg PO BID PRNQty: 40 0RF Rx Instructions: take with a meal aspirin 81 mg tablet,delayed release (DR/EC) 81 mg PO DAILY 7 Days Qty: 7 0RF oxycodone 5 mg tablet 5 - 10 mg PO Q4H MDD 30 mg PRN (Reason: moderate to severe pain) Qty: 18 0RF Continued Januvia 100 mg tablet 100 mg PO DAILY atorvastatin 10 mg tablet 10 mg PO DAILY losartan 50 mg tablet 50 mg PO DAILY magnesium 250 mg tablet 500 mg PO DAILY multivitamin Tablet 1 tab PO DAILY sertraline 100 mg tablet 200 mg PO DAILY Trulicity 1.5 mg/0.5 mL pen injector 1.5 mg subcut QWEEK pantoprazole 40 mg tablet,delayed release (DR/EC) 40 mg PO DAILY Discharge Instructions Additional Instructions: Surgery: Left reverse total shoulder arthroplasty (constrained liner) with biceps tenodesis Activity: Do not lift anything heavier than a coffee. You should keep your arm at your side in a relatively neutral position except for gentle range of motion exercises and essential activities. You should use the sling whenever you are out of the house. You may have to adjust the abduction pillow or remove it for comfort. At home it is best to remove the sling and rest the arm on a pillow at your side or support the operative side with your other hand. MODIFIED Reverse TSA Protocol: Immediate active ROM OK. Prescriptions: Aspirin 81 mg take 1 daily to prevent a blood clot for 1 week Naproxen 250 mg take 1-2 every 12 hours with a meal as needed for moderate pain Oxycodone 5 mg take 1-2 every 4-6 hours as needed for severe pain You may use kekj-mpc-tvbgsbu Tylenol (acetaminophen) as needed for mild pain. These pain medications may be taken all at once or in different combinations as needed. Also, recommend Colace (docusate) as a stool softener as surgery and pain medicine cause constipation. You may try koox-mpb-fefzttg diphenhydramine (Benadryl) 25-50 mg nightly as a sleep aid Dressings: Leave dressing in place until follow-up. Keep clean and dry at all times. No showers please. Follow-up: 10-[address] Culp February 16, 2023 @ 1030 am You may take off the leg compression stockings this evening at home. You may also leave them on a few days longer if you have a history of leg swelling or edema. Please call the office during business hours with any questions or concerns. Let us know right away if you develop any redness, drainage, fevers, chest pain, or trouble breathing. Do not drink alcohol or drive for at least 24 hours after anesthesia. Stand Alone Forms: Anesthesia Discharge Inst., Anes.Nerve Block Instructions, Hans Alonzo (DSU) Discharge Orders Discharge Orders: Discharge Order (Routine); Ordered 02/03/23 Ordered By: Dung Culp DS: Diagnosis Discharge Diagnosis (1) Arthritis of left shoulder region: Status: Acute
--- NOTE | 2023-02-03 07:03 | W.PM.OP ---
Date of service: 02/03/23 Time of Service: 07:30 Operative Note Operative Note DATE OF PROCEDURE: 02/03/23 PRE-OP DIAGNOSIS: Left: 1. Rotator cuff arthropathy 2. Long head of the biceps tendinopathy POST-OP DIAGNOSIS: same PROCEDURE: Left: 1. Reverse total shoulder arthroplasty, CPT # 18613 2. Open biceps tenodesis, CPT # 11500 The medicine assistant was medically required as this procedure involves retraction, protection of neurovascular structures, and manipulation of multiple instruments and implants at the same time, which cannot be done without a skilled medicine assistant. SURGEON: Dung Culp INSURANCE CLAIMS EXAMINER: Vinh Chiang ANESTHESIA TYPE: Local By Surgeon, General LMA/ETT and Primary Nerve Block Refer to Anesthesia Record ESTIMATED BLOOD LOSS: 75 COMPLICATIONS: None Patient was transported to: PACU Patient's condition: stable Implants: [employer] modular glenoid system baseplate 24 mm +2mm lateralized [employer] modular glenoid system central post 20 mm [employer] modular glenoid system peripheral locking screws 32 mm inferior, 32 mm superior, none anterior, 16 mm posterior [employer] modular glenoid system glenosphere 36 +4 mm lateralized [employer] humeral stem 135 degrees size 6 [employer] suture cup size 36 posterior offset [employer] humeral insert size 36 +3 mm constrained Indications: Please see complete medical record for details. Findings: Significant long head biceps tenosynovitis, mild upper margin subscapularis partial tearing, moderate leading edge supraspinatus partial tearing, high-grade glenohumeral cartilage loss and impinging humeral osteophytes. Procedure Description: In the operating room, general anesthesia was induced. The patient was positioned beachchair on the operating room table. All bony prominences were well-padded. Preoperative antibiotics were administered. The shoulder was prepped and draped in the usual sterile fashion for shoulder arthroplasty. The correct patient, procedure, and side of the procedure were all verified prior to incision. The deltopectoral approach was taken to the anterior shoulder. Care was taken to bluntly dissect the interval between the deltoid and pectoralis major muscles and to identify the cephalic vein within its fat stripe. The the vein was mobilized laterally. Subdeltoid space and conjoined tendon were freed of adhesions. The long head of the biceps tendon was identified just lateral to the lesser tuberosity. The uppermost margin of the pectoralis major tendon was released from the proximal humerus. The long head of the biceps tendon was tenodesed in situ to the superior margin of the pectoralis major. It was amputated and followed identifying the rotator interval. The subscapularis was debrided of partial tearing of the lesser tuberosity and then tenotomy done to enter the joint. Care was taken to avoid the axillary nerve by only working on the bone inferiorly and medially. The leading edge of the supraspinatus was debrided of partial tearing. Appropriate coagulation was achieved especially interiorly. The anatomic neck was cut using an oscillating saw with the humeral head bone brought back table in case there was a need for future bone grafting. The proximal humeral protection plate was used to provisionally confirm suture cup and glenosphere size. Reamers were started appropriately posterior to the bicipital groove taking care to maintain in line approach with the humeral canal. Sequential reaming was done from size 5 up to size 7, which had a relatively tight feel. Next, the broaches were sequentially used to open the proximal humerus starting with a size 5 and going up to size 7, which was too large for an inlay fit, and the size 6 sunk to the appropriate depth while maintaining approximately 20-25 degrees retroversion. There was good metaphyseal fit and rotational control of the proximal humerus with this size. The posterior offset guide was used to ream for the suture cup. Attention was then turned to the glenoid and retractors were placed and a circumferential release performed using the long head of the biceps remnant to remove soft tissue about the glenoid rim. Care was taken inferiorly to work on bone only between 5 and 7:00 o'clock and bluntly elevate tissues inferiorly. The standard place plate guide was used to localize placement of the guidewire. As expected, the glenoid was diminutive and only about the size of the baseplate. The guidewire was inserted, trajectory confirmed, length measured, and then passed just through the far cortex ensuring adequate central fixation length. Depth gauge was used to confirm length. The primary reamer was done for the baseplate with good preparation of the glenoid with slightly more bone reamed inferiorly as planned. The secondary reamer was done gently to prepare for the backside of the glenosphere. The 20 mm central drill was used. The baseplate was impacted and fully compressed onto the prepared glenoid surface. The locking guide was then used to drill and place appropriately lengthed inferior, superior, and posterior locking screws. The anterior screw was short and omitted. The [id number] reamer was used to confirm adequate peripheral reaming. The glenosphere was applied with the drafter directional survey and then impacted to engage the Vidal taper. It was then locked with appropriate countersinking of the setscrew. The glenosphere was inspected and found to have good fit, appropriate positioning, and no soft tissue or bony impingement. Attention was then turned back to the proximal humerus, which was delivered from the wound and maintained in external rotation. The humeral trial cup was connected. Trialing was commenced with +3 mm liner. The shoulder was reduced and taken through range of motion. It demonstrated excellent stability and appropriate tension on the deltoid and conjoined tension. The trial components were removed from the proximal humerus. The wound was copiously irrigated with normal saline. The the proximal humeral stem and suture cup were assembled and brought over the proximal humerus. A small amount of vancomycin powder was distributed in the proximal humerus. The humeral component and suture cup were impacted into place. They sat at the exact same level as the last trialed implants. A constrained liner was chosen given advanced age, no planned subscapularis repair, allow immediate active range of motion, and significant obesity to avoid instabilit. This final +3 mm constrained liner was attached, shoulder reduced, and range of motion, stability, and tension confirmed. The shoulder was copiously irrigated with Betadine and normal saline. Vancomycin powder was distributed deeply about the shoulder and through subcutaneous tissues. The deltopectoral interval was well approximated and closed with 2-0 Monocryl centrally taking care to bury the vein. Subcutaneous tissue was irrigated then space and subcutaneous tissue closed using 2-0 Monocryl in a buried interrupted fashion. Skin was closed using 3-0 Monocryl in a buried subcuticular fashion. Skin glue was applied to the incision. A silver impregnated bandage was placed over the incision. The extremity was placed into a shoulder immobilizer. The patient awoke from anesthesia without complication and was taken to the recovery room in stable condition.
--- NOTE | 2023-02-03 07:07 | W.ANESPRE ---
General Info Date of Service Date Performed: 02/03/23 Height: 5 ft 2 in Weight: 109.4 kg Body Mass Index (BMI): 44.1 Surgical Procedure: Operation Date: 02/03/23 07:40 Proposed Procedure Side Surgeon p Shoulder Reverse Total Arthroplasty, Biceps Tenodesis Left Dung Culp MD Meds Allergies and Home Medications Allergies Allergy/AdvReac Type Severity Reaction Status Date / Time No Known Allergies Allergy Verified 02/01/23 14:32 Home Medication Medication Instructions Recorded atorvastatin 10 mg tablet 10 mg PO DAILY 12/04/19 losartan 50 mg tablet 50 mg PO DAILY 12/04/19 magnesium 250 mg tablet 500 mg PO DAILY 12/04/19 multivitamin 1 tab PO DAILY 12/04/19 sitagliptin phosphate 100 mg 100 mg PO DAILY 12/04/19 tablet (Januvia) dulaglutide 1.5 mg/0.5 mL 1.5 mg subcut QWEEK 03/09/22 subcutaneous pen injector (Trulicity) sertraline 100 mg tablet 200 mg PO DAILY 03/09/22 pantoprazole 40 mg tablet,delayed 40 mg PO DAILY 12/21/22 release aspirin 81 mg tablet,delayed 81 mg PO DAILY prevent blood clot 02/03/23 release 7 days #7 tabs naproxen 250 mg tablet 250 - 500 mg (1 - 2 x 250 mg) PO 02/03/23 BID PRN #40 tabs oxycodone 5 mg tablet 5 - 10 mg (1 - 2 x 5 mg) PO Q4H 02/03/23 PRN moderate to severe pain #18 tabs Current Visit Medications: Current Medications Generic Name Dose Route Start Last Admin Trade Name Latosha PRN Reason Stop Dose Admin Ringer's Solution 1,000 mls @ 30 mls/hr 02/03/23 06:00 02/03/23 06:51 IV 02/03/23 23:59 30 mls/hr INFUSION MORTEZA Administration Cefazolin Sodium 3,000 mg/ 100 mls @ 200 mls/hr 02/03/23 06:00 Sodium Chloride IV 02/03/23 23:59 PREOP MORTEZA Tranexamic Acid 1,000 mg/ 60 mls @ 360 mls/hr 02/03/23 06:00 Sodium Chloride IVPB 02/03/23 23:59 PREOP MORTEZA Cefazolin Sodium/Dextrose 1 gm in 50 mls @ 100 mls/hr 02/03/23 11:30 Ancef Duplex IVPB 02/03/23 11:59 ONCE ONE IV Miscellaneous Supplies 1 each 02/03/23 06:00 Iv Access IV 02/03/23 23:59 DIRECTED MORTEZA Lactobacillus Acidophilus/Casei 1 cap 02/03/23 12:30 L. Acidophilus, Casei, Rhamnosus Cap PO 03/05/23 12:29 DAILY MORTEZA Oxycodone HCl 5 - 10 mg 02/03/23 06:57 Oxycodone 5 Mg Tab PO 03/05/23 06:56 Q3H PRN PRN Pain Sodium Chloride 0 ml 02/03/23 06:00 Normal Saline Flush 10 Ml Syr IV 02/03/23 23:59 PRN PRN Sodium Chloride 0 ml 02/03/23 06:00 Normal Saline 10 Ml Vial IJ 02/03/23 23:59 DIRECTED PRN Sterile Water 0 ml 02/03/23 06:00 Water,Injection,Sterile 10 Ml Vial IJ 02/03/23 23:59 DIRECTED PRN PFSH Active Problems Active Problems: Problem Status Onset Code Primary osteoarthritis of right knee M17.11 Primary osteoarthritis of left knee M17.12 Arthritis of left shoulder region M19.012 Rotator cuff tear arthropathy of right shoulder M75.101, M12.811 Plantar fasciitis of right foot M72.2 Iliotibial band tendonitis of left side M76.32 Pes anserinus bursitis of left knee M70.52 Knee pain, left M25.562 Internal derangement of knee involving lateral meniscus M23.302 Medical History Medical History Lumbar radiculopathy Anxiety Vertigo Dry cough Morbid obesity Hypertension GERD (gastroesophageal reflux disease) Diabetes mellitus Depression Surgical History Surgical History History of cholecystectomy History of carpal tunnel release Tobacco Smoking/Tobacco Use Status: Never Alcohol Alcohol Intake: current Alcohol intake frequency: holidays/special occasions only Substance Use Substance use type: does not use Vital Signs and Lab Results Vital Signs Most Recent Vital Signs in EMR: Most Recent Vital Signs Temp Pulse Resp BP Pulse Ox 36.3 C L 68 16 116/69 96 02/03/23 06:12 02/03/23 06:12 02/03/23 06:12 02/03/23 06:12 02/03/23 06:12 Lab Results Blood Type / Crossmatch: No Data to Display Complete Blood Count: No Data to Display Complete Metabolic Panel: No Data to Display Liver Function Panel: No Data to Display Coagulation Panel: No Data to Display Cardiac Panel: No Data to Display Arterial Blood Gas: No Data to Display Venous Blood Gas: No Data to Display Pancreas Panel: No Data to Display Thyroid Panel: No Data to Display Infectious Disease: No Data to Display Blood Cultures: No Data to Display Toxicology Panel: No Data to Display Anesthesia Assessment and Plan Anesthesia History Personal History: No History of Anesthesia Complications Family History: No Family History of Anesthesia Complications Exercise Tolerance Exercise Tolerance: Metabolic Equivalents<4 Pertinent Negatives Pertinent Negatives: No Symptoms of GERD, No Major Cardiovascular Symptoms or Complaints, No Major Pulmonary Symptoms or Complaints and No History of CVA/TIA Cardiac & Pulmonary Exam Cardiac Exam: Normal S1/S2 Heart Sounds Pulmonary Exam: Clear Bilateral Breath Sounds Implantable Cardiac Device Does patient have a Pacemaker or an ICD?: No Airway Exam Known Difficult Airway: No Mallampati Class: 3 Mouth Opening: Normal (> 3cm) Thyromental Distance: Greater than 3 cm Neck Range of Motion: Full ROM Neck Circumference: Thick Teeth Condition: Normal Dentition ASA Classification ASA Score: ASA 3 Emergency Case?: No NPO Status NPO Status: NPO Clears >2 hours, Solids >8 hours Anesthesia Plan Resuscitation Status: Full Code Anesthesia Technique: General Anesthesia Airway Planned: Endotracheal Tube Pain Management: Surgeon and patient request nerve block Monitors Used: Standard Monitors Preoperative Comments:: BS 105
[2023-02-03] MEDS: ceFAZolin 3,000 MG in Normal Saline 100 ML 200 MG IV (07:30)
[2023-02-03] MEDS: EPINEPHrine 1 MG/ML AMP pres-free (08:19)
[2023-02-03] MEDS: Bupivacaine 0.25% Pres-Free 30 ML VIAL (08:20)
--- NOTE | 2023-02-03 08:47 | W.ANESNERVE ---
Nerve Block Single Injection Procedure Date and Time Date Performed: 02/03/23 Procedure Start: 07:13 Location Where Procedure Performed Procedure Location: Day Surgery Unit Reason Performed: Postoperative Analgesia Requesting Provider: Dung Culp Timeout Performed Timeout Performed: Yes Monitoring Used ECG, Blood Pressure, SpO2 and See EMR for corresponding vital signs Sterility Sterility: Hand Hygiene, Surgical Cap, Surgical Mask, Sterile Gloves and Chlorhexidine Sedation Given During Procedure Sedation Given (Indicate Dose Given): Versed IV Dose:: 2 mg Patient Mental Status Patient Mental Status: Sedate with meaningful communication Nerve Block 1st Nerve Block: Laterality: Left Block Type: Interscalene Ultrasound Image Saved?: Yes Needle / Catheter Used: 100mm SonoPlex II Local Anesthetic Bolus (Indicate Dose Given): Lidocaine used for local infiltration of skin, Injected in 3-5ml increments after negative blood aspiration, Bupivacaine 0.5% Dose:: 10 ml and Exparel Dose:: 10 ml Additives (Indicate Dose Given): None Ultrasound: Sterile probe cover and gel used Nerve Stimulator: Supplement to Ultrasound use and No twitch or parasthesia noted < 0.5 mA Paresthesia: None Procedure Tolerated: No Complications and Patient tolerated well Procedure Outcome: Successful Performed By: Gisselle Shepherd
--- NOTE | 2023-02-03 11:01 | DI.RAD_ITS ---
Exam(s) XR SHOULDER LT COMPLETE 2+V EXAM: XR SHOULDER LT COMPLETE 2+V INDICATION: Shoulder arthritis. COMPARISON: CR XR SHOULDER LT COMPLETE 2+V from 12/21/2022 TECHNIQUE: 2D digital imaging was performed. Two views. Portable FINDINGS: A left reverse shoulder prosthesis has been placed. The alignment appears satisfactory. A small am ount residual postsurgical air in the soft tissues. DATA REPOSITORY: RADIATION DOSE DELIVERED:
--- NOTE | 2023-02-03 11:50 | W.ANESPOSTOP ---
Postoperative Evaluation Date, Time and Location Date Performed: 02/03/23 Time Performed: 11:50 Patient Location: Day Surgery Unit Vital Signs Most Recent Imported Vital Signs: Most Recent Vital Signs Temp Pulse Resp BP Pulse Ox 36.6 C 70 16 110/69 94 02/03/23 11:46 02/03/23 11:46 02/03/23 11:46 02/03/23 11:46 02/03/23 11:46 Pain Score Most Recent Pain Score: Most Recent Pain Score Pain Level 0 02/03/23 11:46 Assessment Mental Status: Awake (Alert & Oriented to Patient Baseline) Airway and Respiratory Function: Patent airway with normal (patient baseline) respiratory exam Cardiovascular Function: Hemodynamically Stable Hydration Status: Adequately Hydrated Nausea & Vomiting: No Nausea or Vomiting Pain: Pt. Denies Any Pain Peripheral Nerve Block: Regional nerve block not resolved at time of post operative discharge
[2023-02-03] MEDS: ceFAZolin 1 GM/50 ML BAG IVPB (12:14)
== END 2023-02-03 13:20 | disposition home or self-care (01) ==
PROVIDERS: PCP Physician Assistant; Visit Provider Student in an Organized Health Care Education/Training Program
PROC: (CPT 23472; principal; 2023-02-03 07:30)
DX: M75.101 Unspecified rotator cuff tear or rupture of right shoulder, not specified as traumatic (principal); M19.012 Primary osteoarthritis, left shoulder
CPT/HCPCS: 23472; 23430; C1713; 76942; 73030; J0171; J0690; J1100; J1885; J2250; J2371; J2405; J2704

== ENCOUNTER 2023-02-16 11:43 | Outpatient (CLI) | payer MEDICARE, OTHER, SELFPAY ==
--- NOTE | 2023-02-16 10:30 | DI.RAD_ITS ---
Exam(s) XR SHOULDER LT COMPLETE 2+V EXAM: XR SHOULDER LT COMPLETE 2+V CLINICAL HISTORY: F/U LEFT RTSA. TECHNIQUE: 2D digital imaging was performed. Two images were obtained. Y and Grashey views were obt ained. COMPARISON: CR XR SHOULDER LT COMPLETE 2+V from 02/03/2023 FINDINGS: BONES: There are stable post operative changes of a left total reverse shoulder replacement present. No fracture or dislocation. JOINTS: The orthopedic hardware is in good position. No evidence of hardware loosening. SOFT TISSUE: There is a persistent small amount of air in the soft tissues adjacent to the acromion. The visualized lungs are clear. IMPRESSION: 1. Stable postoperative changes. 2. Small amount of air in the soft tissues adjacent to the acromion which is likely secondary to the recent surgery. DATA REPOSITORY: RADIATION DOSE DELIVERED:
== END 2023-02-16 11:44 | disposition home or self-care (01) ==
LOC: DIORS 11:43
PROVIDERS: PCP Physician Assistant; Referring Provider Physician Assistant; Visit Provider Student in an Organized Health Care Education/Training Program
DX: Z96.612 Presence of left artificial shoulder joint (principal); Z47.1 Aftercare following joint replacement surgery
CPT/HCPCS: 73030

== ENCOUNTER 2023-03-17 14:18 | Outpatient (REF) | payer MEDICARE, OTHER, SELFPAY ==
--- OUTSIDE RECORDS SUMMARY | 2023-03-17 14:22 | XMS_ITS | Continuity of Care Document ---
Author Name Unknown Organization [facility] Address [address] [place] [address] Care Team Providers Care Care Team Coordinator Scheduler Name Role Phone Lisette Gimenez Primary Care Physician Encounter [facility] Date(s): 03/23/22 - 03/23/[address] [address] Discharge Disposition: Home or Self Care Attending Physician: Lisette Gimenez PA-C Admitting Physician: Lisette Gimenez PA-C Referring Physician: Lisette Gimenez PA-C Allergies, Adverse Reactions, Alerts No Known Medication Allergies Social History Social History Type Response Sex Female Patient Care team information Personnel Name: Lisette Gimenez PA-C Address: Address: [address] [address]
[2023-03-17 20:20] LABS: COMMENT (LAB VIEW ONLY) 189.56 mg/dL; Microalb ug/mg Crea 4.3 ug/mg Cr
== END 2023-03-17 14:19 | disposition home or self-care (01) ==
LOC: NCHCN 14:18
PROVIDERS: PCP Physician Assistant; Visit Provider Physician Assistant
DX: E11.9 Type 2 diabetes mellitus without complications (principal)
CPT/HCPCS: 82043; 82570

== ENCOUNTER 2023-03-23 21:15 | Outpatient (REF) | payer MEDICARE, OTHER, SELFPAY ==
[2023-03-23 20:50] LABS: Hemoglobin A1C 6.4 % (<5.7)
== END 2023-03-23 21:16 | disposition home or self-care (01) ==
LOC: NCHCN 21:15
PROVIDERS: PCP Physician Assistant; Visit Provider Internal Medicine
DX: E11.9 Type 2 diabetes mellitus without complications (principal)
CPT/HCPCS: 83036

== ENCOUNTER 2023-04-13 14:49 | Outpatient (CLI) | payer MEDICARE, OTHER, SELFPAY ==
--- NOTE | 2023-04-13 13:00 | DI.RAD_ITS ---
Exam(s) XR SHOULDER LT COMPLETE 2+V EXAM: XR SHOULDER LT COMPLETE 2+V INDICATION: evaluate after fall on left shoulder. COMPARISON: CR XR SHOULDER LT COMPLETE 2+V from 02/16/2023 TECHNIQUE: 2D digital imaging was performed. Two views. FINDINGS: There has been no change in the alignment of the total shoulder prosthesis. No abnormal bony lucenci es are seen. DATA REPOSITORY: RADIATION DOSE DELIVERED:
== END 2023-04-13 14:50 | disposition home or self-care (01) ==
LOC: DIORS 14:49
PROVIDERS: PCP Physician Assistant; Referring Provider Physician Assistant; Visit Provider Student in an Organized Health Care Education/Training Program
DX: Z47.1 Aftercare following joint replacement surgery (principal); Z96.612 Presence of left artificial shoulder joint
CPT/HCPCS: 73030

== ENCOUNTER → 2023-06-21 13:09 | Outpatient (BNVA) | payer MEDICARE, OTHER, SELFPAY | PROVIDERS: PCP Physician Assistant; Referring Provider Physician Assistant; Visit Provider Student in an Organized Health Care Education/Training Program | DX: Z47.1 Aftercare following joint replacement surgery (principal); Z96.611 Presence of right artificial shoulder joint; Z96.612 Presence of left artificial shoulder joint; M75.101 Unspecified rotator cuff tear or rupture of right shoulder, not specified as traumatic | CPT/HCPCS: 99213 ==

== ENCOUNTER 2023-09-22 13:19 | Outpatient (REF) | payer MEDICARE, OTHER, SELFPAY ==
[2023-09-22 19:20] LABS: ALT 27 U/L (14-59); AST 17 U/L (15-37); Albumin 3.7 g/dL (3.4-5.0); Alkaline Phosphatase 105 U/L (46-116); Anion Gap 5.1 mmol/L (3-11); BUN 21 mg/dL (7-18); Bilirubin, Total 0.5 mg/dL (0.2-1.0); CO2 27.9 mmol/L (21.0-32.0); Calcium 9.1 mg/dL (8.5-10.1); Chloride 105 mmol/L (98-107); Estimated GFR 58.02 (mL/min/1.73m2); Glucose 93 mg/dL (74-106); LDL CHOLESTEROL 50 mg/dL (<100); Potassium 4.8 mmol/L (3.5-5.1); Sodium 138 mmol/L (136-145)
== END 2023-09-22 13:20 | disposition home or self-care (01) ==
LOC: NCHCN 13:19
PROVIDERS: PCP Physician Assistant; Visit Provider Physician Assistant
DX: E11.9 Type 2 diabetes mellitus without complications (principal)
CPT/HCPCS: 80053; 83721

== ENCOUNTER → 2023-12-26 14:42 | Outpatient (BNVA) | payer MEDICARE, OTHER, SELFPAY | PROVIDERS: PCP Physician Assistant; Referring Provider Physician Assistant; Visit Provider Student in an Organized Health Care Education/Training Program | DX: M17.11 Unilateral primary osteoarthritis, right knee (principal); M17.12 Unilateral primary osteoarthritis, left knee | CPT/HCPCS: 20610; J1010 ==

== ENCOUNTER 2024-01-24 10:42 | Day surgery (SDC) | payer MEDICARE, OTHER, SELFPAY ==
[2024-01-24 10:54] VITALS: BP 150/87; PULSE 74; RESP 18; TEMP 36.3; O2SAT 96
[2024-01-24] MEDS: Sodium Bicarbonate 50 MEQ/50 ML VIAL (13:22)
[2024-01-24] MEDS: Lidocaine 1% Multi-Dose W/EPI 1/100,000 50 ML VIAL (13:22)
[2024-01-24 13:38] VITALS: BP 130/53; PULSE 75; RESP 18; TEMP 36.2; O2SAT 100
--- NOTE | 2024-01-24 13:38 | W.PM.DSUDISC ---
Date of service: 01/24/24 Time of Service: 13:39 Discharge Plan Disposition Patient Disposition: Home Condition: Good Discharge Details Reason For Visit: right index and ring trigger fingers Attending Provider: Dakotah Garcia Primary Care Provider: Lisette Gimenez Home Meds and New Rx's Prescriptions: Continued Januvia 100 mg tablet 100 mg PO DAILY atorvastatin 10 mg tablet 10 mg PO DAILY losartan 50 mg tablet 50 mg PO DAILY magnesium 250 mg tablet 500 mg PO DAILY multivitamin Tablet 1 tab PO DAILY sertraline 100 mg tablet 200 mg PO DAILY Trulicity 1.5 mg/0.5 mL pen injector 1.5 mg subcut QWEEK pantoprazole 40 mg tablet,delayed release (DR/EC) 40 mg PO DAILY Discharge Instructions Stand Alone Forms: Radha Ocasio Finger Alejandro Activity:: Elevate Remove Dressings/Wound Care:: 48 hours Shower/Bathe:: 48 hours Diet:: As Tolerated Discharge Orders Discharge Orders: Discharge Order (Routine); Ordered 01/24/24 Ordered By: Kate Zayas
--- NOTE | 2024-01-24 14:30 | ROE_ITS ---
Date of service: 01/24/24 Time of Service: 13:20 Operative Note Operative Note DATE OF PROCEDURE: 01/24/24 PRE-OP DIAGNOSIS: Right Index and Ring Finger Trigger Fingers POST-OP DIAGNOSIS: same PROCEDURE: Trigger Finger Release - Right Index and Ring Finger SURGEON: Dakotah Garcia ANESTHESIA TYPE: Local By Surgeon Refer to Anesthesia Record ESTIMATED BLOOD LOSS: 0 PATHOLOGY: none sent COMPLICATIONS: None Patient was transported to: same day Patient's condition: stable Indications: I have seen Britta in clinic for symptoms of a trigger finger involving her right ring and index fingers. The catching, clicking, locking, and pain limited function. The diagnosis of trigger finger was evident. The symptoms had not responded to conservative measures. I discussed trigger finger release with the patient. I reviewed the risks of the procedure to include, but not limited to, bleeding, infection, pain, stiffness, incomplete release, damage to nerves or vessels, continued catching, recurrence. Despite these risks, the patient elected to proceed. Findings: There was a tightened A1 nevaeh which was released. The flexor tendons were inspected and the patient was able to move the finger without any catching, clicking, or locking. Procedure Description: Britta was greeted in the preoperative holding area where the correct side was identified and marked. The consent was reviewed with the patient and signed. All questions were answered. She was taken back to the operating room. The patient was placed into the supine position on the operating room table with the right arm on an arm board. All bony prominences were well padded. No prophylactic antibiotics were administered since this was a clean, elective hand surgical case. The right arm was then prepped with Chloraprep and draped in a standard fashion with stockinette and extremity drape. A timeout to confirm correct identity, side and site, procedure, allergies, anesthesia, and medical concerns was performed. The surgical site was marked as a longitudinal incision directly over the A1 nevaeh of the ring and index fingers This was confirmed with palpation during finger flexion. This area, overlying the metacarpal head, was then anesthetized with 1% Lidocaine of both fingers. The patient tolerated this well and once the anesthetic had setup, the procedure began. Starting with the ring finger, a longitudinal incision was made through skin only, approximately 1cm. The deep tissues were dissected bluntly. Once the A1 nevaeh and flexor tendons were identified the soft tissue including neurovascular structures were retracted medially and laterally. There were no crossing structures over the A1 nevaeh. The proximal edge of the nevaeh was identified and the nevaeh was incised with tenotomy scissors. There was a release of the tendons once this was fully released. The tendons were then removed from the wound and inspected. Excess synovium was resected. The tendons were then returned and the patient was asked to move the finger into deep flexion and back to extension. There was no recreation of the pre- operative symptoms. The hand was then once more inspected for any A0 nevaeh or area of possible constriction. The wound was then irrigated and the skin was closed with a 4-0 Nylon. Attention was then turned to the index finger. Similarly, a longitudinal incision was made through skin only, approximately 1cm. The deep tissues were dissected bluntly. Once the A1 nevaeh and flexor tendons were identified the soft tissue including neurovascular structures were retracted medially and laterally. There were no crossing structures over the A1 nevaeh. The proximal edge of the nevaeh was identified and the nevaeh was incised with tenotomy scissors. There was a release of the tendons once this was fully released. The tendons were then removed from the wound and inspected. Excess synovium was resected. The tendons were then returned and the patient was asked to move the finger into deep flexion and back to extension. There was no recreation of the pre-operative symptoms. The wound was then irrigated and the skin was closed with a 4-0 Nylon. This was dressed with gauze and a Conform dressing. The patient tolerated the procedure well and was returned to the Same Day Surgery area in a stable condition suffering no known complication.
== END 2024-01-24 13:46 | disposition home or self-care (01) ==
PROVIDERS: PCP Physician Assistant; Visit Provider Student in an Organized Health Care Education/Training Program
PROC: (CPT 26055; principal; 2024-01-24 13:15)
DX: M65.341 Trigger finger, right ring finger (principal); M65.321 Trigger finger, right index finger
CPT/HCPCS: 26055 ×2; J2004

== ENCOUNTER → 2024-02-03 08:41 | Outpatient (BNVA) | payer MEDICARE, OTHER, SELFPAY | PROVIDERS: PCP Physician Assistant; Referring Provider Physician Assistant | DX: Z47.89 Encounter for other orthopedic aftercare (principal); M79.641 Pain in right hand | CPT/HCPCS: 99024 ==

== ENCOUNTER 2024-02-08 14:05 | Outpatient (CLI) | payer MEDICARE, OTHER, SELFPAY ==
--- NOTE | 2024-02-08 14:29 | DI.RAD_ITS ---
Exam(s) XR SHOULDER RT COMPLETE 2+V EXAM: XR SHOULDER RT COMPLETE 2+V CLINICAL HISTORY: F/U RIGHT RTSA. TECHNIQUE: 2D digital imaging was performed. COMPARISON: CR XR SHOULDER LT COMPLETE 2+V from 12/21/2022 CR XR SHOULDER RT COMPLETE 2+V from 12/21/2022 CR XR SHOULDER LT COMPLETE 2+V from 02/08/2024 FINDINGS: 3 views Position alignment of the components of the right shoulder reverse prosthesis remain stable. No frac tures evident. However, on the frontal view there is an area of peripherally sclerotic lucency in th e upper humerus adjacent to the most superior aspect of the humeral component of the prosthesis. Thi s is evident on the frontal view. IMPRESSION: Compared to 12/21/2022 there has been development of some intraosseous lucency surrounding the upper half of the humeral component of the reverse prosthesis. Correlation any clinical signs of loosening recommended. DATA REPOSITORY: RADIATION DOSE DELIVERED:
--- NOTE | 2024-02-08 14:29 | DI.RAD_ITS ---
Exam(s) XR SHOULDER LT COMPLETE 2+V EXAM: XR SHOULDER LT COMPLETE 2+V CLINICAL HISTORY: F/U LEFT RTSA. TECHNIQUE: 2D digital imaging was performed. COMPARISON: CR XR SHOULDER LT COMPLETE 2+V from 04/13/2023 FINDINGS: 3 views Stable position alignment of the components of the reverse left shoulder prosthesis. No fracture lora dent. However, there has been interval development of area of lucency for a distance of 1.4 cm adjac ent to the outer aspect of the humeral component of the prosthesis. Thin peripheral sclerotic line a t this level. This finding was not evident on images 1324. Is less evident in the other 2 images to day. IMPRESSION: Interval development of subtle area of lucency adjacent to the upper aspect of the humeral component of the prosthesis. Correlation with any clinical signs of loosening recommended DATA REPOSITORY: RADIATION DOSE DELIVERED:
== END 2024-02-08 14:06 | disposition home or self-care (01) ==
LOC: DIORS 02-09 08:01
PROVIDERS: PCP Physician Assistant; Visit Provider Student in an Organized Health Care Education/Training Program
DX: Z47.1 Aftercare following joint replacement surgery (principal); Z96.611 Presence of right artificial shoulder joint; Z96.612 Presence of left artificial shoulder joint
CPT/HCPCS: 99213; 73030

== ENCOUNTER → 2024-09-27 13:11 | Outpatient (BNVA) | payer MEDICARE, OTHER, SELFPAY | PROVIDERS: PCP Physician Assistant; Referring Provider Physician Assistant; Visit Provider Physician Assistant | DX: M17.0 Bilateral primary osteoarthritis of knee (principal) | CPT/HCPCS: 20610; J1010 ==

== ENCOUNTER 2024-12-13 18:40 | Outpatient (REF) | payer MEDICARE, OTHER, SELFPAY ==
[2024-12-13 20:47] LABS: Abs Immature Grans 0.02 10^3/uL (0.0-0.06); HCT 40.5 % (36.0-46.0); HGB 13.0 g/dL (11.2-15.7); Immature Grans % 0.3 %; MCH 28.4 pg (27.0-33.0); MCHC 32.1 % (32.0-36.0); MCV 89 fL (80-95); MPV 10.2 fL (8.0-11.0); Platelet Count 221 10^3/uL (130-400); RBC 4.57 10^6/uL (3.93-5.22); RDW 13.4 % (11.7-14.6); RDW-SD 43.8 fL; WBC 5.98 10^3/uL (4.4-10.8)
[2024-12-13 20:57] LABS: ALT 28 U/L (14-59); AST 25 U/L (15-37); Albumin 3.8 g/dL (3.4-5.0); Alkaline Phosphatase 110 U/L (46-116); Anion Gap 11.5 mmol/L (3-11); BUN 25 mg/dL (7-18); Bilirubin, Total 0.5 mg/dL (0.2-1.0); CO2 24.5 mmol/L (21.0-32.0); Calcium 8.7 mg/dL (8.5-10.1); Chloride 107 mmol/L (98-107); Estimated GFR 46.33 (mL/min/1.73m2); Glucose 208 mg/dL (74-106); Potassium 4.3 mmol/L (3.5-5.1); Sodium 143 mmol/L (136-145); Total Protein 7.0 g/dL (6.4-8.2)
[2024-12-15 02:30] LABS: Hepatitis C Ab w Rflx HCV PCR Negative (Negative)
== END 2024-12-13 18:41 | disposition home or self-care (01) ==
LOC: NCHCN 18:40
PROVIDERS: PCP Physician Assistant; Visit Provider Physician Assistant
DX: I10 Essential (primary) hypertension (principal)
CPT/HCPCS: 80053; 86803; 85025

== ENCOUNTER 2025-03-10 18:11 | Emergency (ER) | payer MEDICARE, OTHER, SELFPAY ==
[2025-03-10 18:35] VITALS: BP 135/61; PULSE 74; RESP 18; TEMP 36.7; O2SAT 95
--- NOTE | 2025-03-10 19:15 | DI.RAD_ITS ---
Exam(s) XR KNEE LT 4V AP,LAT,SABRINA,PAT EXAM: XR KNEE LT 4V AP,LAT,SABRINA,PAT CLINICAL HISTORY: fall with significant anterior swelling, pain. TECHNIQUE: 2D digital imaging was performed. COMPARISON: CR XR KNEE RT 3V AP,LAT,SABRINA from 12/29/2022 FINDINGS: Four views There is significant soft tissue swelling anteriorly and laterally. There is, however, no obvious fracture. There are tricompartmental osteoarthritic degenerative changes, most advanced in the lateral patellofemoral compartments. More moderate degenerative changes in the medial compartment are noted. There is no radiopaque foreign body. No gas in the soft tissues IMPRESSION: Prominent soft tissue swelling. No obvious fractures evident. DATA REPOSITORY: RADIATION DOSE DELIVERED:
--- NOTE | 2025-03-10 19:28 | W.ED.GENAD ---
Discharge Plan Disposition Patient Disposition: Home Condition: Stable Discharge Details Clinical Impression: Left knee sprain Primary Care Provider: Lisette Gimenez ED Provider: Tory Brewster Home Meds and New Rx's Prescriptions: No Action Januvia 100 mg tablet 100 mg PO DAILY atorvastatin 10 mg tablet 10 mg PO DAILY losartan 50 mg tablet 50 mg PO DAILY magnesium 250 mg tablet 500 mg PO DAILY multivitamin Tablet 1 tab PO DAILY sertraline 100 mg tablet 200 mg PO DAILY Trulicity 1.5 mg/0.5 mL pen injector 4.5 mg subcut QWEEK pantoprazole 40 mg tablet,delayed release (DR/EC) 40 mg PO DAILY Discharge Instructions Instructions: Knee Sprain (DC) Additional Instructions: You were seen in the emergency department today for evaluation after a fall with a knee injury. In our department you had a full physical examination performed, and you had an x-ray of your knee that did not show any evidence of fracture or dislocation but does show significant swelling in the soft tissues which may be due to a contusion, and may also be due to a sprain of the ligaments in the knee. You were placed in a knee immobilizer which you should wear whenever you are up and about, and I have provided you with a walker to use for protected weightbearing and to help you get up from sitting and from the toilet. A referral was placed to orthopedics for repeat evaluation. Please use therapeutic dosing of Tylenol (acetaminophen) & Advil (ibuprofen) in an alternating fashion as follows: Take 1000mg of Tylenol every 6 hours without missing doses- that is 4 times per day. [place] in between the Tylenol doses, take 600mg of Advil also on a 6 hour schedule, that is also 4 times per day. With this strategy, you will be taking something for fever/pain as often as every 3 hours. The daily maximum dosing of Tylenol is 4000mg, and the daily maximum dosing of Advil is 2400mg. Please note that some common cold medications & prescription pain medications may contain acetaminophen and you need to read OTC drug labels and factor that in to maximum daily doses. Please use ice and elevation to manage swelling, and please follow-up with your primary care provider in the next few days to discuss this visit and any symptoms that change, worsen, or persist. Thank you for allowing us to be part of your care. Stand Alone Forms: Portal Information Referrals: Dakotah Garcia MD [ [facility] STAFF PHYSICIAN, Orthopaedic Surgical] - 1 week HPI General Mode of arrival: wheelchair. Date/Time Provider Initiated Documentation: 03/10/25 18:39. Limitations to Documentation: no limitations. Information obtained by: patient, family and old records reviewed. HPI Narrative: This is a 79-year-old female patient with a past medical history most notable for numerous orthopedic issues, including osteoarthritis of the bilateral knees status post steroid injections, presenting for evaluation of left knee injury after a fall. The patient reports that she was in her normal state of health today, slipped on the ice outside on the pavement, landing on her left side and she thinks she may have either struck or twisted her left knee. She states that she was able to get up and walk about and use her cane normally, and did not have significant discomfort all morning, went to latter-day and went home. She then started to have some significant discomfort especially when she tried to get up off the toilet. The patient reports that she did not have any preceding dizziness, loss of consciousness, chest pain, or other medical complaints prior to this fall, she did not strike her head or lose consciousness. She has used ibuprofen and ice throughout the day for swelling and pain management. She has no numbness, tingling, or weakness distal to the injury. Related Data Home Medications ?Medication ?Instructions ?Recorded ?Confirmed atorvastatin 10 mg tablet 10 mg PO DAILY 12/04/19 03/10/25 losartan 50 mg tablet 50 mg PO DAILY 12/04/19 03/10/25 magnesium 250 mg tablet 500 mg PO DAILY 12/04/19 03/10/25 multivitamin 1 tab PO DAILY 12/04/19 03/10/25 sitagliptin phosphate 100 mg 100 mg PO DAILY 12/04/19 03/10/25 tablet (Januvia) sertraline 100 mg tablet 200 mg PO DAILY 03/09/22 03/10/25 pantoprazole 40 mg tablet,delayed 40 mg PO DAILY 12/21/22 03/10/25 release dulaglutide 1.5 mg/0.5 mL 4.5 mg subcut QWEEK 09/27/24 03/10/25 subcutaneous pen injector (Trulicity) Allergies Allergy/AdvReac Type Severity Reaction Status Date / Time No Known Allergies Allergy Verified 03/10/25 18:37 General Stated Complaint: Orthopedic MARIA ESTHER: 4 Exam Narrative Exam Narrative: Gen: Awake and alert, in no apparent distress HEENT: Non-icteric sclera Neck: Supple Lungs: No apparent respiratory distress, normal respiratory effort. CV: Appears well perfused Abdomen: Non-distended MSK: Moves 4 extremities without apparent limitation in ROM with the exception of the right left knee. The patient has marked soft tissue swelling and ecchymosis especially over the anterior and medial aspect of the knee. She has preserved range of motion, with some tenderness to palpation over the anterior and medial joint lines. She has no popliteal fossa tenderness, no calf or de leon tenderness, and the ankle and foot distal to this injury are atraumatic. CSM's intact, with strong DP pulses, full sensation and range of motion of the affected left foot. The extensive amount of soft tissue swelling makes palpation of the patella, quadriceps and patellar tendon for defects quite difficult, and the patient has difficulty tolerating this examination due to her discomfort. Additionally, I do not get a clear sense of laxity with ligamentous testing. Skin: Visualized skin without rashes, cyanosis. Neuro: No obvious focal deficits or facial asymmetry. Speaks in full, clear sentences. Psych: Appropriate for situation. Course Vital Signs Vital signs: Vital Signs Temperature 36.7 C 03/10/25 18:35 Pulse 74 03/10/25 18:35 Respiratory Rate 18 03/10/25 18:35 Blood Pressure 135/61 03/10/25 18:35 Pulse Oximetry 95 03/10/25 18:35 Temperature 36.7 C 03/10/25 18:35 Temperature Source Oral 03/10/25 18:35 Pulse 74 03/10/25 18:35 Respiratory Rate 18 03/10/25 18:35 Blood Pressure 135/61 03/10/25 18:35 Pulse Oximetry 95 03/10/25 18:35 Oxygen Delivery Method Room Air 03/10/25 18:35 Oxygen Flow Rate 0 03/10/25 18:35 Medical Decision Making This is a 79-year-old female patient presenting for evaluation after knee injury. Reassuringly, this is an isolated injury, and she had no medical complaints prior to this event to suggest anything other than a mechanical fall. Differential includes but is not limited to fracture, dislocation, ligamentous injury/internal derangement, contusion, hematoma. No evidence for neurovascular derangement on my physical examination. We will obtain an x-ray and I provided the patient with a dose of Tylenol for ongoing pain management given the recent administration of ibuprofen. -X-ray reviewed by myself, showing extensive soft tissue swelling but no evidence of fracture, dislocation or other osseous abnormalities. Given the concern for potential sprain and the difficulty with clinical examination given the patient's habitus and significant swelling, the decision was made to place this patient in a knee immobilizer. I provided her with a walker to allow for protected weightbearing, patient typically uses a cane for ambulation. A referral to orthopedics was placed, and at this time, the patient has had a full medical evaluation and is safe for discharge to home. They are hemodynamically stable, ambulatory, and tolerating PO. They are understanding of the follow-up plan and return precautions. They left our facility without incident. Tory Brewster MD [facility] All Active Problems (Updated 03/10/25 @ 21:14 by Tory Brewster MD) Left knee sprain (Acute) Status post reverse total arthroplasty of left shoulder (Acute ~02/03/23) Primary osteoarthritis of right knee (Acute) DEPO MEDROL 12/29/22; 12/26/23; 09/27/24 Primary osteoarthritis of left knee (Acute) DEPO MEDROL 12/29/22; 12/26/23; 09/27/24 Arthritis of left shoulder region (Acute) Plantar fasciitis of right foot (Acute) Iliotibial band tendonitis of left side (Acute) Pes anserinus bursitis of left knee (Acute) Internal derangement of knee involving lateral meniscus (Acute) Medical History (Updated 03/10/25 @ 21:14 by Tory Brewster MD) Lumbar radiculopathy Anxiety Vertigo Dry cough Morbid obesity Hypertension GERD (gastroesophageal reflux disease) Diabetes mellitus Depression Surgical History (Updated 09/27/24 @ 14:01 by AYSE Cano) Rotator cuff tear arthropathy of right shoulder s/p right RTSA on 05/06/22 Trigger finger, right index finger s/p trigger release DOS: 01/24/24 Trigger finger, right ring finger s/p trigger release DOS: 01/24/24 History of cholecystectomy History of carpal tunnel release Social History Smoking/Tobacco Use Status: Never Smoking risk assessment performed?: Yes Alcohol Intake: current Alcohol Intake frequency: holidays/special occasions only Drug use: Never Substance use type: does not use Housing: house Current gender identity: female Do you feel safe at home: Yes Do you feel safe in your relationship?: Yes PAWSS Have you Been Recently Intoxicated or Drunk Within the Last 30 days?: No Have you Ever Experienced Previous Episodes of Alcohol Withdrawal?: No Have you ever Experienced Withdrawal Seizures?: No Have you ever Experienced Delirium Tremens(DT)s?: No Have you ever undergone Alcohol Rehabilitation Treatment (i.e, inpt ot outpatient treatment programs)?: No Have you ever Experienced Blackouts?: No Have you ever Combined Alcohol with other Downers within the last 90 days?: No Have you ever Combined Alcohol with any other Substance of Abuse during the last 90 days?: No Positive Blood Alcohol level on Presentation? [PCS.BAL]: No Evidence of Increased Autonomic Activity (i.e. HR>120, tremor, sweating, agitation, nausea)?: No Result: 0
[2025-03-10] MEDS: Acetaminophen 500 MG TAB 1000 MG PO (19:30)
--- NOTE | 2025-03-10 21:13 | DI.VRAD_ITS ---
PROCEDURE INFORMATION: Exam: XR Left Knee Exam date and time: 03/10/2025 7:46 PM Age: 79 years old Clinical indication: Knee; Left; Fall with significant anterior swelling, pain TECHNIQUE: Imaging protocol: Radiologic exam of the left knee. Views: 4 or more views. COMPARISON: CR XR KNEE LT 3V AP,LAT,SABRINA 12/29/2022 9:10 AM FINDINGS: Bones/joints: Degenerative changes are noted at the patellofemoral articulation. There is some medial compartment joint space narrowing. No evidence for fracture or joint effusion. Soft tissues: There is significant soft tissue swelling. IMPRESSION: No evidence for fracture. Degenerative changes as noted. Dictated and Authenticated by: Pari Butler MD. Orderin [facility]. Caleb Spears MD
== END 2025-03-10 21:31 | disposition home or self-care (01) ==
PROVIDERS: Emergency Provider Emergency Medicine; PCP Physician Assistant
DX: S83.92XA Sprain of unspecified site of left knee, initial encounter (principal); I10 Essential (primary) hypertension; E11.9 Type 2 diabetes mellitus without complications; Z79.84 Long term (current) use of oral hypoglycemic drugs; Z79.85 Long-term (current) use of injectable non-insulin antidiabetic drugs; W00.0XXA Fall on same level due to ice and snow, initial encounter; Y93.01 Activity, walking, marching and hiking
CPT/HCPCS: 99283; 73564

== ENCOUNTER → 2025-03-11 13:25 | Outpatient (BNVA) | payer MEDICARE, OTHER, SELFPAY ==
--- NOTE | 2025-03-14 12:40 | NUR.NOTE ---
Accessed patients chart to print face sheet for Surgi-care form:
== END ==
PROVIDERS: PCP Physician Assistant; Referring Provider Physician Assistant; Visit Provider Student in an Organized Health Care Education/Training Program
DX: M17.12 Unilateral primary osteoarthritis, left knee (principal)
CPT/HCPCS: 99214